=== PATIENT | male | born 1985 | race African-American/Black ===

== ENCOUNTER 2017-03-09 22:22 | Emergency (ER) | payer MEDICAID ==
[~2017-03-09] VITALS: Ht 185.4 cm; Wt 87.0 kg
[2017-03-09 22:25] VITALS: BP 129/73; PULSE 51; RESP 14; TEMP 98.4; O2SAT 98
[2017-03-09 23:29] VITALS: BP 155/74; PULSE 66; RESP 22; TEMP 98.3; O2SAT 100
[2017-03-09] MEDS ORDERED: ZOFR4TAB PO (23:32)
[2017-03-09] MEDS ORDERED: REGL5TAB PO (23:32)
[2017-03-09] MEDS ORDERED: PRIL10PO (23:32)
[2017-03-09] MEDS ORDERED: SODIUM CHLOR 0.9% 1000 ML INJ 1,000 ML IV SCH (23:37)
[2017-03-09] MEDS ORDERED: SODIUM CHLORIDE 0.9% FLUSH 10 ML FLUSH IV FLUSH PRN (23:45)
[2017-03-09] MEDS ORDERED: PROCHLORPERAZINE INJ 10 MG/2 ML VIAL IV PUSH ONE (23:45)
[2017-03-09] MEDS ORDERED: diphenhydrAMINE HCL 50 MG/ML VIAL IV PUSH ONE (23:45)
[2017-03-09] MEDS ORDERED: MORPHINE SULFATE 4 MG/ML INJ IV PUSH ONE (23:45)
[2017-03-09] MEDS ORDERED: ONDANSETRON HCL 4 MG/2 ML VIAL IVP ONE (23:45)
--- NOTE | 2017-03-09 23:45 | PD ---
HPI Chief Complaint: abdominal pain Time Seen by Provider: 23:30 Travel History International Travel<30 days: No Contact w/Intl Traveler<30days: No Traveled to known affect area: No History of Present Illness HPI The patient is a 31-year-old [place] male who presents emergency department via EMS for nausea, vomiting, and abdominal pain. The patient's name is Blas Nguyen, he was inadvertently listed as Blas Han, however, registration states he cannot change his name. The patient states he has a history of gastroparesis with persistent nausea, vomiting, and epigastric abdominal pain. The patient's symptoms started at 1 PM earlier today. The pain is moderate, nonradiating, burning, associated with nausea and vomiting. The patient states she is undergone endoscopy in the past and had his gallbladder removed, however, continues to have symptoms. He does admit smoking marijuana daily, takes approximately 2 showers per day which do alleviate his symptoms. He denies any previous diagnosis of hyperemesis cannabis syndrome, states she was diagnosed with gastroparesis. He denies any fever, chills, or sweats. Symptoms are moderate, there are no current alleviating or exacerbating factors. [facility] Past Medical History Narrative Medical Gastroparesis Past Surgical History Narrative Surgical Cholecystectomy, endoscopy Social History Tobacco Use: Yes Substance Use: Yes (marijuana) Allergies-Medications (Allergen,Severity, Reaction): Coded Allergies: No Known Allergies (Unverified , 03/09/17) Reported Meds & Prescriptions Reported Meds & Active Scripts Active Reported Prilosec (Omeprazole Magnesium) 10 Mg Pow Reglan (Metoclopramide HCl) 5 Mg Tab 5 Mg PO QID Zofran (Ondansetron HCl) 4 Mg Tab 4 Mg PO Q6HR PRN Review of Systems Except as stated in HPI: all other systems reviewed are Neg General / Constitutional: No: Fever HENT: No: Lightheadedness Cardiovascular: No: Chest Pain or Discomfort Respiratory: No: Shortness of Breath Gastrointestinal: Positive: Nausea, Vomiting, Abdominal Pain, No: Diarrhea, Constipation Genitourinary: No: Dysuria Musculoskeletal: No: Myalgias, Arthralgias Skin: No Rash Physical Exam Narrative GENERAL: Awake, alert, 31-year-old male who appears his stated age is in no acute respiratory distress. SKIN: Focused skin assessment warm/dry. HEAD: Atraumatic. Normocephalic. EYES: Pupils equal and round. No scleral icterus. No injection or drainage. ENT: No nasal bleeding or discharge. Mucous membranes pink and moist. NECK: Trachea midline. No JVD. CARDIOVASCULAR: Regular rate and rhythm. No murmur appreciated. Heart rate in the 60s. RESPIRATORY: No accessory muscle use. Clear to auscultation. Breath sounds equal bilaterally. GASTROINTESTINAL: Abdomen soft, mild epigastric tenderness, no rebound tenderness, guarding, or rigidity. MUSCULOSKELETAL: No obvious deformities. No clubbing. No cyanosis. No edema. NEUROLOGICAL: Awake and alert. No obvious cranial nerve deficits. Motor grossly within normal limits. Normal speech. PSYCHIATRIC: Appropriate mood and affect; insight and judgment normal. Data Data Last Documented VS Vital Signs Date Time Temp Pulse Resp B/P Pulse Ox O2 Delivery O2 Flow Rate FiO2 03/10/17 02:05 65 20 142/80 98 Room Air 03/09/17 23:29 98.3 Orders Complete Blood Count With Diff (03/09/17 23:37) Comprehensive Metabolic Panel (03/09/17 23:37) Lipase (03/09/17 23:37) Lactic Acid (03/09/17 23:37) Iv Access Insert/Monitor (03/09/17 23:37) Ecg Monitoring (03/09/17 23:37) Oximetry (03/09/17 23:37) Morphine Inj (Morphine Inj) (03/09/17 23:45) Ondansetron Inj (Zofran Inj) (03/09/17 23:45) Sodium Chlor 0.9% 1000 Ml Inj (Ns 1000 M (03/09/17 23:37) Sodium Chloride 0.9% Flush (Ns Flush) (03/09/17 23:45) Prochlorperazine Inj (Compazine Inj) (03/09/17 23:45) Diphenhydramine Inj (Benadryl Inj) (03/09/17 23:45) Ct Abd/Pel W Iv Contrast(Rout) (03/10/17 ) Sodium Chlor 0.9% 1000 Ml Inj (Ns 1000 M (03/10/17 01:30) Iohexol 350 Inj (Omnipaque 350 Inj) (03/10/17 02:05) Sodium Chlor 0.9% 1000 Ml Inj (Ns 1000 M (03/10/17 03:00) Lactic Acid (03/10/17 04:00) Complete Blood Count With Diff (03/10/17 04:00) Labs Laboratory Tests Test 03/09/17 03/10/17 23:55 04:13 White Blood Count 38.6 TH/MM3 28.5 TH/MM3 Red Blood Count 6.08 MIL/MM3 5.41 MIL/MM3 Hemoglobin 18.5 GM/DL 16.7 GM/DL Hematocrit 54.0 % 47.5 % Mean Corpuscular Volume 88.8 FL 87.7 FL Mean Corpuscular Hemoglobin 30.5 PG 30.9 PG Mean Corpuscular Hemoglobin 34.3 % 35.2 % Concent Red Cell Distribution Width 13.6 % 13.5 % Platelet Count 275 TH/MM3 202 TH/MM3 Mean Platelet Volume 9.5 FL 9.6 FL Neutrophils (%) (Auto) 87.3 % 90.9 % Lymphocytes (%) (Auto) 4.9 % 4.0 % Monocytes (%) (Auto) 7.4 % 4.5 % Eosinophils (%) (Auto) 0.0 % 0.0 % Basophils (%) (Auto) 0.4 % 0.6 % Neutrophils # (Auto) 33.7 TH/MM3 25.9 TH/MM3 Lymphocytes # (Auto) 1.9 TH/MM3 1.1 TH/MM3 Monocytes # (Auto) 2.8 TH/MM3 1.3 TH/MM3 Eosinophils # (Auto) 0.0 TH/MM3 0.0 TH/MM3 Basophils # (Auto) 0.1 TH/MM3 0.2 TH/MM3 CBC Comment AUTO DIFF DIFF FINAL Differential Total Cells 100 Counted Neutrophils % (Manual) 88 % Band Neutrophils % 1 % Lymphocytes % 5 % Monocytes % 6 % Neutrophils # (Manual) 34.4 TH/MM3 Differential Comment FINAL DIFF MANUAL Atypical Lymphocytes % Platelet Estimate NORMAL Platelet Morphology Comment NORMAL Sodium Level 132 MEQ/L Potassium Level 4.0 MEQ/L Chloride Level 97 MEQ/L Carbon Dioxide Level 22.3 MEQ/L Anion Gap 13 MEQ/L Blood Urea Nitrogen 28 MG/DL Creatinine 1.57 MG/DL Estimat Glomerular Filtration 63 ML/MIN Rate Random Glucose 178 MG/DL Lactic Acid Level 3.1 mmol/L 1.2 mmol/L Calcium Level 9.9 MG/DL Total Bilirubin 1.1 MG/DL Aspartate Amino Transf 27 U/L (AST/SGOT) Alanine Aminotransferase 27 U/L (ALT/SGPT) Alkaline Phosphatase 100 U/L Total Protein 9.0 GM/DL Albumin 4.9 GM/DL Lipase 83 U/L MDM Medical Decision Making Medical Screen Exam Complete: Yes Emergency Medical Condition: Yes Medical Record Reviewed: Yes Interpretation(s) Last Impressions Abdomen/Pelvis CT 03/10/17 0000 Signed Impressions: Service Date/Time: Friday, March 10, 2017 01:52 - CONCLUSION: 1. No acute inflammatory process. 2. Small left renal cyst. 3. Status post cholecystectomy. Noel Perea MD Laboratory Tests Test 03/09/17 03/10/17 23:55 04:13 White Blood Count 38.6 TH/MM3 28.5 TH/MM3 Red Blood Count 6.08 MIL/MM3 5.41 MIL/MM3 Hemoglobin 18.5 GM/DL 16.7 GM/DL Hematocrit 54.0 % 47.5 % Mean Corpuscular Volume 88.8 FL 87.7 FL Mean Corpuscular Hemoglobin 30.5 PG 30.9 PG Mean Corpuscular Hemoglobin 34.3 % 35.2 % Concent Red Cell Distribution Width 13.6 % 13.5 % Platelet Count 275 TH/MM3 202 TH/MM3 Mean Platelet Volume 9.5 FL 9.6 FL Neutrophils (%) (Auto) 87.3 % 90.9 % Lymphocytes (%) (Auto) 4.9 % 4.0 % Monocytes (%) (Auto) 7.4 % 4.5 % Eosinophils (%) (Auto) 0.0 % 0.0 % Basophils (%) (Auto) 0.4 % 0.6 % Neutrophils # (Auto) 33.7 TH/MM3 25.9 TH/MM3 Lymphocytes # (Auto) 1.9 TH/MM3 1.1 TH/MM3 Monocytes # (Auto) 2.8 TH/MM3 1.3 TH/MM3 Eosinophils # (Auto) 0.0 TH/MM3 0.0 TH/MM3 Basophils # (Auto) 0.1 TH/MM3 0.2 TH/MM3 CBC Comment AUTO DIFF DIFF FINAL Differential Total Cells 100 Counted Neutrophils % (Manual) 88 % Band Neutrophils % 1 % Lymphocytes % 5 % Monocytes % 6 % Neutrophils # (Manual) 34.4 TH/MM3 Differential Comment FINAL DIFF MANUAL Atypical Lymphocytes % Platelet Estimate NORMAL Platelet Morphology Comment NORMAL Sodium Level 132 MEQ/L Potassium Level 4.0 MEQ/L Chloride Level 97 MEQ/L Carbon Dioxide Level 22.3 MEQ/L Anion Gap 13 MEQ/L Blood Urea Nitrogen 28 MG/DL Creatinine 1.57 MG/DL Estimat Glomerular Filtration 63 ML/MIN Rate Random Glucose 178 MG/DL Lactic Acid Level 3.1 mmol/L 1.2 mmol/L Calcium Level 9.9 MG/DL Total Bilirubin 1.1 MG/DL Aspartate Amino Transf 27 U/L (AST/SGOT) Alanine Aminotransferase 27 U/L (ALT/SGPT) Alkaline Phosphatase 100 U/L Total Protein 9.0 GM/DL Albumin 4.9 GM/DL Lipase 83 U/L Differential Diagnosis Differential diagnosis includes gastroparesis, gastritis, peptic ulcer disease, retained biliary stone, pancreatitis, hyperemesis cannabis syndrome, malingering , drug-seeking behavior, electrolyte abnormality, dehydration. Narrative Course IV was established, labs are drawn and sent, and the patient was placed on cardiac telemetry monitoring and continuous pulse oximetry monitoring. The patient was administered Compazine, Benadryl, morphine, and IV fluids. The patient's white count was elevated at 38.6, hemoglobin was elevated greater than 18, most likely secondary to dehydration and hemoconcentration from his persistent nausea and vomiting. However, with elevated white count and ongoing symptoms, CT of the abdomen and pelvis was ordered. The patient was administered a second liter of IV fluids. The patient's lactic acid and white count were repeated after IV fluids, significantly improved. CT of the abdomen and pelvis were negative. The patient was reevaluated multiple times and was sleeping comfortably, most likely lactic acid and white count were elevated from persistent nausea/vomiting with dehydration. Patient will be discharged home on Reglan and pain medications. He is advised to follow-up with his primary physician. Diagnosis Primary Impression: Gastroparesis Additional Impression: Dehydration Patient Instructions: General Instructions Additional Instructions: Medications as directed. Follow-up with your primary physician. Return if symptoms worsen or progress. Med/Other Pt SpecificInfo: Prescription(s) given Scripts Hydrocodone-Acetaminophen ([place])5-325 mg Tab1 Tab PO Q6H PRN (PAIN) #10 TAB Ref 0 Prov:Sukumar Ambriz MD 03/10/17 Metoclopramide (Reglan)10 Mg Tab10 Mg PO QID PRN (NAUSEA OR VOMITING) #15 TAB Ref 0 Prov:Sukumar Ambriz MD 03/10/17 Disposition: 01 DISCHARGE HOME Condition: Stable Sukumar Ambriz MD Mar 09, 2017 23:45
[2017-03-10 00:10] LABS: AUTOMATED NEUTROPHIL # 33.7 TH/MM3 (1.8-7.7); BASOPHIL # 0.1 TH/MM3 (0-0.2); BASOPHIL % 0.4 % (0.0-2.0); LYMPH % 4.9 % (9.0-44.0); LYMPHOCYTE # 1.9 TH/MM3 (1.0-4.8); MEAN CELL VOLUME 88.8 FL (80.0-100.0); MEAN CORPUSCULAR HEMOGLOBIN 30.5 PG (27.0-34.0); MEAN CORPUSCULAR HGB CONC 34.3 % (32.0-36.0); MONO % 7.4 % (0.0-8.0); NEUT % 87.3 % (16.0-70.0); PLATELET COUNT 275 TH/MM3 (150-450); RED BLOOD COUNT 6.08 MIL/MM3 (4.50-5.90); RED CELL DISTRIBUTION WIDTH 13.6 % (11.6-17.2); WHITE BLOOD COUNT 38.6 TH/MM3 (4.0-11.0)
[2017-03-10 00:15] LABS: HEMO FLAGS AUTO DIFF
[2017-03-10 00:27] LABS: ALKALINE PHOSPHATASE 100 U/L (45-117); TOTAL BILIRUBIN ADULT 1.1 MG/DL (0.2-1.0)
[2017-03-10 00:34] LABS: ALT (GPT) 27 U/L (12-78); ANION GAP 13 MEQ/L (5-15); AST (GOT) 27 U/L (15-37); BICARBONATE 22.3 MEQ/L (21.0-32.0); BLOOD UREA NITROGEN 28 MG/DL (7-18); CHLORIDE 97 MEQ/L (98-107); GLOMERULAR FILTRATION RATE 63 ML/MIN (>89); SODIUM (NA) 132 MEQ/L (136-145)
[2017-03-10 00:35] VITALS: BP 122/62; PULSE 75; RESP 19; O2SAT 99
[2017-03-10] MEDS ORDERED: SODIUM CHLOR 0.9% 1000 ML INJ 1,000 ML IV ONE ×2 (01:30→03:00)
[2017-03-10 01:36] LABS: BANDS 1 % (0-6); NEUTROPHIL # MANUAL DIFF 34.4 TH/MM3 (1.8-7.7); POLYS (SEG NEUTROPHILS) 88 % (16-70); WBC DIFF SAMPLE 100
[2017-03-10 01:37] LABS: SCAN/DIFF FINAL DIFF MANUAL
[2017-03-10 01:38] LABS: PLATELET ESTIMATE SMEAR NORMAL (NORMAL); PLATELET MORPHOLOGY NORMAL (NORMAL)
[2017-03-10 02:05] VITALS: BP 142/80; PULSE 65; RESP 20; O2SAT 98
[2017-03-10] MEDS ORDERED: IOHEXOL 350 MG/ML 10 ML VIAL (for RAD DIAG) IV ONE (02:05)
--- NOTE | 2017-03-10 02:34 | RADRPT ---
EXAM DATE/TIME: 03/10/2017 01:52 [facility] COMPARISON: No previous studies available for comparison. INDICATIONS : Abdominal pain with vomiting. IV CONTRAST: 100 cc Omnipaque 350 (iohexol) IV ORAL CONTRAST: No oral contrast ingested. RADIATION DOSE: 6.64 CTDIvol (mGy) MEDICAL HISTORY : Gastroparesis. SURGICAL HISTORY : Cholecystectomy. ENCOUNTER: Initial ACUITY: 1 day PAIN SCALE: 8/10 LOCATION: abdomen TECHNIQUE: Volumetric scanning of the abdomen and pelvis was performed. Using automated exposure control and ad justment of the mA and/or kV according to patient size, radiation dose was kept as low as reasonably achievable to obtain optimal diagnostic quality images. DICOM format image data is available electro nically for review and comparison. FINDINGS: LOWER LUNGS: The visualized lower lungs are clear. LIVER: Homogeneous density without lesion. There is no dilation of the biliary tree. Cholecystectomy clips. SPLEEN: Normal size without lesion. PANCREAS: Within normal limits. KIDNEYS: Normal in size and shape. There is no mass, stone or hydronephrosis. A 1.1 cm left renal cyst. ADRENAL GLANDS: Within normal limits. VASCULAR: There is no aortic aneurysm. BOWEL/MESENTERY: The stomach, small bowel, and colon demonstrate no acute abnormality. There is no free intraperitone al air or fluid. ABDOMINAL WALL: Within normal limits. RETROPERITONEUM: There is no lymphadenopathy. BLADDER: No wall thickening or mass. REPRODUCTIVE: Within normal limits. INGUINAL: There is no lymphadenopathy or hernia. MUSCULOSKELETAL: Within normal limits for patient age. CONCLUSION: 1. No acute inflammatory process. 2. Small left renal cyst. 3. Status post cholecystectomy. Noel Perea MD on March 10, 2017 at 2:30 Board Certified Radiologist. This report was verified electronically.
[2017-03-10 04:26] LABS: AUTOMATED NEUTROPHIL # 25.9 TH/MM3 (1.8-7.7); BASOPHIL # 0.2 TH/MM3 (0-0.2); BASOPHIL % 0.6 % (0.0-2.0); HEMATOCRIT 47.5 % (39.0-51.0); HEMO FLAGS DIFF FINAL; LYMPHOCYTE # 1.1 TH/MM3 (1.0-4.8); MEAN CELL VOLUME 87.7 FL (80.0-100.0); MEAN CORPUSCULAR HEMOGLOBIN 30.9 PG (27.0-34.0); MEAN CORPUSCULAR HGB CONC 35.2 % (32.0-36.0); MONO % 4.5 % (0.0-8.0); NEUT % 90.9 % (16.0-70.0); PLATELET COUNT 202 TH/MM3 (150-450); RED BLOOD COUNT 5.41 MIL/MM3 (4.50-5.90); RED CELL DISTRIBUTION WIDTH 13.5 % (11.6-17.2); WHITE BLOOD COUNT 28.5 TH/MM3 (4.0-11.0)
[2017-03-10] MEDS ORDERED: REGL10TA5 PO (05:00)
[2017-03-10] MEDS ORDERED: NORC5TAB PO (05:00)
[2017-03-10 06:06] VITALS: BP 120/71
[2017-03-10] MEDS ORDERED: MORPHINE SULFATE 4 MG/ML INJ IM ONE (06:30)
[2017-03-10] MEDS ORDERED: PROCHLORPERAZINE INJ 10 MG/2 ML VIAL IM ONE (06:30)
== END 2017-03-10 06:48 | disposition home or self-care (01) ==
LOC: NEPE 22:22 → EDBD 22:22 → NEPE 03-10 06:48
DX: K31.84 Gastroparesis (principal); E86.0 Dehydration; F12.90 Cannabis use, unspecified, uncomplicated; Z72.0 Tobacco use
CPT/HCPCS: 74177; 80053; 83605; 83690; 85007; 85025; 85027; 96361; 96372; 96374; 96375; 99285; J0780; J1200; J2270; J2405; J7030; Q9967

== ENCOUNTER 2017-04-07 04:06 | Emergency (ER) | payer MEDICAID ==
[~2017-04-07] VITALS: Ht 185.4 cm; Wt 88.0 kg
[~2017-04-07 04:06] MED LIST: NORC5TAB PO; PRIL10PO; REGL10TA5 PO; REGL5TAB PO; ZOFR4TAB PO
[2017-04-07 04:47] VITALS: BP 149/86; PULSE 52; RESP 16; TEMP 98.2; O2SAT 99
[2017-04-07] MEDS ORDERED: SODIUM CHLOR 0.9% 1000 ML INJ 1,000 ML IV SCH (04:57)
[2017-04-07] MEDS ORDERED: SODIUM CHLORIDE 0.9% FLUSH 10 ML FLUSH IV FLUSH PRN (05:00)
[2017-04-07] MEDS ORDERED: ALUMINUM/MAGNESIUM/SIMETH 30 ML CUP PO ONE (05:00)
[2017-04-07] MEDS ORDERED: PANTOPRAZOLE SODIUM 40 MG VIAL IVP ONE (05:00)
[2017-04-07] MEDS ORDERED: LIDOCAINE VISCOUS 2% SOLN 15 ML UDC PO ONE (05:00)
--- NOTE | 2017-04-07 05:05 | PD ---
HPI Chief Complaint: GI Complaint Time Seen by Provider: 04:57 Travel History International Travel<30 days: No Contact w/Intl Traveler<30days: No Traveled to known affect area: No History of Present Illness HPI The patient's 31 years old. He states he's had gastritis for 10 years. He reports severe constant epigastric pain. No vomiting. No fever. No diarrhea. He requests ice water. Onset gradual. Duration of this particular episode has been several hours. He reports undergoing treatment at [facility]. [facility] Past Medical History Diminished Hearing: No Gastrointestinal Disorders: Yes (GASTROPARESIS) Past Surgical History Cholecystectomy: Yes Social History Alcohol Use: Yes (RARE) Tobacco Use: Yes (1 PPD) Substance Use: Yes (marijuana) Allergies-Medications (Allergen,Severity, Reaction): Coded Allergies: No Known Allergies (Unverified , 04/07/17) Reported Meds & Prescriptions Reported Meds & Active Scripts Active Reglan (Metoclopramide HCl) 10 Mg Tab 10 Mg PO QID PRN Reported Prilosec (Omeprazole Magnesium) 10 Mg Pow Reglan (Metoclopramide HCl) 5 Mg Tab 5 Mg PO QID Zofran (Ondansetron HCl) 4 Mg Tab 4 Mg PO Q6HR PRN Review of Systems Except as stated in HPI: all other systems reviewed are Neg Physical Exam Narrative GENERAL: 31-year-old male mild distress secondary to pain SKIN: Focused skin assessment warm/dry. HEAD: Atraumatic. Normocephalic. EYES: Pupils equal and round. No scleral icterus. No injection or drainage. ENT: No nasal bleeding or discharge. Mucous membranes pink and moist. NECK: Trachea midline. No JVD. CARDIOVASCULAR: Regular rate and rhythm. No murmur appreciated. RESPIRATORY: No accessory muscle use. Clear to auscultation. Breath sounds equal bilaterally. GASTROINTESTINAL: Soft. Diffuse nonspecific tenderness. MUSCULOSKELETAL: No obvious deformities. No clubbing. No cyanosis. No edema. NEUROLOGICAL: Awake and alert. No obvious cranial nerve deficits. Motor grossly within normal limits. Normal speech. PSYCHIATRIC: Appropriate mood and affect; insight and judgment normal. Data Data Last Documented VS Vital Signs Date Time Temp Pulse Resp B/P Pulse Ox O2 Delivery O2 Flow Rate FiO2 04/07/17 04:47 98.2 52 16 149/86 99 Room Air VS reviewed Orders Complete Blood Count With Diff (04/07/17 04:57) Comprehensive Metabolic Panel (04/07/17 04:57) Lipase (04/07/17 04:57) Lactic Acid (04/07/17 04:57) Iv Access Insert/Monitor (04/07/17 04:57) Ecg Monitoring (04/07/17 04:57) Oximetry (04/07/17 04:57) Pantoprazole Inj (Protonix Inj) (04/07/17 05:00) Sodium Chlor 0.9% 1000 Ml Inj (Ns 1000 M (04/07/17 04:57) Sodium Chloride 0.9% Flush (Ns Flush) (04/07/17 05:00) Al-Mag Hy-Si 40-40-4 Mg/Ml Liq (Mag-Al P (04/07/17 05:00) Lidocaine 2% Viscous (Xylocaine 2% Visco (04/07/17 05:00) Labs Laboratory Tests Test 04/07/17 05:05 White Blood Count 28.4 TH/MM3 Red Blood Count 5.37 MIL/MM3 Hemoglobin 16.5 GM/DL Hematocrit 48.1 % Mean Corpuscular Volume 89.6 FL Mean Corpuscular Hemoglobin 30.6 PG Mean Corpuscular Hemoglobin 34.2 % Concent Red Cell Distribution Width 13.6 % Platelet Count 249 TH/MM3 Mean Platelet Volume 9.0 FL Neutrophils (%) (Auto) 80.6 % Lymphocytes (%) (Auto) 10.1 % Monocytes (%) (Auto) 8.5 % Eosinophils (%) (Auto) 0.1 % Basophils (%) (Auto) 0.7 % Neutrophils # (Auto) 22.8 TH/MM3 Lymphocytes # (Auto) 2.9 TH/MM3 Monocytes # (Auto) 2.4 TH/MM3 Eosinophils # (Auto) 0.0 TH/MM3 Basophils # (Auto) 0.2 TH/MM3 CBC Comment AUTO DIFF Sodium Level 139 MEQ/L Potassium Level 3.7 MEQ/L Chloride Level 102 MEQ/L Carbon Dioxide Level 27.0 MEQ/L Anion Gap 10 MEQ/L Blood Urea Nitrogen 10 MG/DL Creatinine 1.01 MG/DL Estimat Glomerular Filtration 105 ML/MIN Rate Random Glucose 109 MG/DL Lactic Acid Level 1.7 mmol/L Calcium Level 9.3 MG/DL Total Bilirubin 0.4 MG/DL Aspartate Amino Transf 30 U/L (AST/SGOT) Alanine Aminotransferase 40 U/L (ALT/SGPT) Alkaline Phosphatase 87 U/L Total Protein 7.5 GM/DL Albumin 3.9 GM/DL Lipase 237 U/L MDM Medical Decision Making Medical Screen Exam Complete: Yes Emergency Medical Condition: Yes Medical Record Reviewed: Yes Differential Diagnosis Constipation, Gastritis, Acute Cholecystitis, Biliary Colic, Pancreatitis, FINE , Hepatitis, Bowel Obstruction, Cystitis, Mesenteric Ischemia, AAA, Appendicitis , Renal Stone/Hydronephrosis, GERD, perforated viscous Narrative Course CBC & BMP Diagram 04/07/17 05:05 LFTs normal Lipase normal LA 1.7 She has rested here comfortably. He was seen and evaluated here at similar complaint approximately one month ago. He had a marked leukocytosis then as well. Vital signs have been within acceptable range today. He'll be discharged home with Maalox. Follow-up with gastroenterology. Diagnosis Primary Impression: Gastritis Qualified Code: K29.70 - Gastritis without bleeding, unspecified chronicity, unspecified gastritis type Referrals: Chess Instructor 2 days Additional Instructions: You have a choice when it comes to health care, and we are glad that you chose [facility]. Hopefully, we have met your expectations on today's visit. You are welcome to return to [facility] at any time, as we are committed to meeting the health care needs of our community. Med/Other Pt SpecificInfo: Prescription(s) given Scripts Calcium Carbonate-Simethicone (Maalox Advanced Maximum Strength)1,000-60 Mg Chew1-2 Tab CHEW TID PRN (INDIGESTION OR UPSET STOMACH) 3 Days Ref 0 Prov:Keith Coleman MD 04/07/17 Disposition: 01 DISCHARGE HOME Condition: Stable Keith Coleman MD Apr 07, 2017 05:05
[2017-04-07 05:25] LABS: AUTOMATED NEUTROPHIL # 22.8 TH/MM3 (1.8-7.7); BASOPHIL # 0.2 TH/MM3 (0-0.2); BASOPHIL % 0.7 % (0.0-2.0); EOSINOPHIL % 0.1 % (0.0-4.0); HEMATOCRIT 48.1 % (39.0-51.0); LYMPH % 10.1 % (9.0-44.0); LYMPHOCYTE # 2.9 TH/MM3 (1.0-4.8); MEAN CELL VOLUME 89.6 FL (80.0-100.0); MEAN CORPUSCULAR HEMOGLOBIN 30.6 PG (27.0-34.0); MEAN CORPUSCULAR HGB CONC 34.2 % (32.0-36.0); MONO % 8.5 % (0.0-8.0); NEUT % 80.6 % (16.0-70.0); PLATELET COUNT 249 TH/MM3 (150-450); RED BLOOD COUNT 5.37 MIL/MM3 (4.50-5.90); RED CELL DISTRIBUTION WIDTH 13.6 % (11.6-17.2); WHITE BLOOD COUNT 28.4 TH/MM3 (4.0-11.0)
[2017-04-07 05:34] LABS: HEMO FLAGS AUTO DIFF
[2017-04-07 05:41] LABS: ALT (GPT) 40 U/L (12-78); ANION GAP 10 MEQ/L (5-15); AST (GOT) 30 U/L (15-37); BLOOD UREA NITROGEN 10 MG/DL (7-18); CHLORIDE 102 MEQ/L (98-107); GLOMERULAR FILTRATION RATE 105 ML/MIN (>89); POTASSIUM 3.7 MEQ/L (3.5-5.1); SODIUM (NA) 139 MEQ/L (136-145)
[2017-04-07 05:43] LABS: ALKALINE PHOSPHATASE 87 U/L (45-117); TOTAL BILIRUBIN ADULT 0.4 MG/DL (0.2-1.0)
[2017-04-07] MEDS ORDERED: MAAL10003 CHEW (05:55)
[2017-04-07] MEDS ORDERED: OMEP20TA PO (06:03)
[2017-04-07 06:23] VITALS: BP 151/71
[2017-04-07 07:19] LABS: SCAN/DIFF AUTO DIFF CONFIRMED
== END 2017-04-07 06:24 | disposition home or self-care (01) ==
LOC: NEPE 04:06
DX: K29.70 Gastritis, unspecified, without bleeding (principal)
CPT/HCPCS: 80053; 83605; 83690; 85025; 96374; 99284; C9113; J7030

== ENCOUNTER 2017-05-04 19:52 | Inpatient (IN) | payer MEDICAID ==
[~2017-05-04] VITALS: Ht 185.4 cm; Wt 83.6 kg
[~2017-05-04 19:52] MED LIST changes: +MAAL10003 CHEW; -NORC5TAB PO; +OMEP20TA PO
[2017-05-04 19:54] VITALS: BP 137/91; PULSE 86; RESP 20; TEMP 98; O2SAT 98
--- NOTE | 2017-05-04 20:14 | PD ---
Physical Exam Time Seen by Provider: 20:13 Narrative 31 y/o male here for evaluation of abdominal pain, nausea, vomiting. Hx of gastroparesis. Ran out of zofran and prilosec 2 weeks ago. Vital signs reviewed. Seen at triage desk. Awaiting bed placement. Data Data Last Documented VS Vital Signs Date Time Temp Pulse Resp B/P Pulse Ox O2 Delivery O2 Flow Rate FiO2 05/04/17 19:54 98.0 86 20 137/91 98 MDM Medical Record Reviewed: Yes Supervised Visit with JESSICA: Rajiv Fink May 04, 2017 20:14
[2017-05-04 20:40] LABS: BASOPHIL # 0.3 TH/MM3 (0-0.2); BASOPHIL % 0.9 % (0.0-2.0); EOSINOPHIL # 0.2 TH/MM3 (0-0.4); EOSINOPHIL % 0.7 % (0.0-4.0); HEMATOCRIT 50.6 % (39.0-51.0); HEMO FLAGS DIFF FINAL; LYMPHOCYTE # 4.7 TH/MM3 (1.0-4.8); MEAN CELL VOLUME 89.4 FL (80.0-100.0); MEAN CORPUSCULAR HEMOGLOBIN 31.1 PG (27.0-34.0); MEAN CORPUSCULAR HGB CONC 34.8 % (32.0-36.0); MONO % 4.9 % (0.0-8.0); NEUT % 76.5 % (16.0-70.0); PLATELET COUNT 316 TH/MM3 (150-450); RED BLOOD COUNT 5.66 MIL/MM3 (4.50-5.90); WHITE BLOOD COUNT 27.5 TH/MM3 (4.0-11.0)
[2017-05-04 21:07] LABS: ANION GAP 10 MEQ/L (5-15); AST (GOT) 20 U/L (15-37); BICARBONATE 23.2 MEQ/L (21.0-32.0); BLOOD UREA NITROGEN 21 MG/DL (7-18); CHLORIDE 100 MEQ/L (98-107); GLOMERULAR FILTRATION RATE 81 ML/MIN (>89); POTASSIUM 3.2 MEQ/L (3.5-5.1); SODIUM (NA) 133 MEQ/L (136-145)
[2017-05-04 21:08] LABS: ALT (GPT) 21 U/L (12-78)
[2017-05-04 21:10] LABS: ALKALINE PHOSPHATASE 103 U/L (45-117); TOTAL BILIRUBIN ADULT 0.9 MG/DL (0.2-1.0)
[2017-05-04 21:43] VITALS: BP 152/94; PULSE 73; RESP 18; O2SAT 96
--- NOTE | 2017-05-04 22:03 | PD ---
HPI Chief Complaint: GI Complaint Time Seen by Provider: 22:03 Travel History International Travel<30 days: No Contact w/Intl Traveler<30days: No Traveled to known affect area: No History of Present Illness HPI 31-year-old male with long-standing history of gastroparesis presents to the emergency department today for evaluation of severe epigastric pain, nausea, vomiting. Patient states he's been out of his medication for 2 weeks. He states since his last hospitalization, he did not seek follow-up with primary care provider or gastroenterology, saying that he did not know he was supposed to. Patient denies any fever or chills. No chest tightness. States pain is typical of gastroparesis pain. He has no other symptoms to report. [facility] Past Medical History Diminished Hearing: No Gastrointestinal Disorders: Yes (GASTROPARESIS) Past Surgical History Cholecystectomy: Yes Social History Alcohol Use: Yes (RARE) Tobacco Use: Yes (1 PPD) Substance Use: Yes (marijuana) Allergies-Medications (Allergen,Severity, Reaction): Coded Allergies: No Known Allergies (Unverified , 05/04/17) Reported Meds & Prescriptions Reported Meds & Active Scripts Active Reglan (Metoclopramide HCl) 10 Mg Tab 10 Mg PO QID PRN Maalox Advanced Maximum Strength (Calcium Carbonate-Simethicone) 1,000-60 Mg Chew 1-2 Tab CHEW TID PRN Omeprazole 20 Mg Tab 20 Mg PO DAILY Review of Systems Except as stated in HPI: all other systems reviewed are Neg Physical Exam Narrative GENERAL: Well-nourished male patient, curled up in a position on the stretcher but does not appear in acute distress. SKIN: Focused skin assessment warm/dry. HEAD: Atraumatic. Normocephalic. EYES: Pupils equal and round. No scleral icterus. No injection or drainage. ENT: No nasal bleeding or discharge. Mucous membranes pink and moist. NECK: Trachea midline. No JVD. CARDIOVASCULAR: Regular rate and rhythm. No murmur appreciated. RESPIRATORY: No accessory muscle use. Clear to auscultation. Breath sounds equal bilaterally. GASTROINTESTINAL: Abdomen soft, nondistended. Tenderness in the epigastrium. Hepatic and splenic margins not palpable. MUSCULOSKELETAL: No obvious deformities. No clubbing. No cyanosis. No edema. NEUROLOGICAL: Awake and alert. No obvious cranial nerve deficits. Motor grossly within normal limits. Normal speech. PSYCHIATRIC: Appropriate mood and affect; insight and judgment normal. Data Data Last Documented VS Vital Signs Date Time Temp Pulse Resp B/P Pulse Ox O2 Delivery O2 Flow Rate FiO2 05/04/17 21:43 73 18 152/94 96 Room Air 05/04/17 19:54 98.0 Orders Complete Blood Count With Diff (05/04/17 20:14) Comprehensive Metabolic Panel (05/04/17 20:14) Lipase (05/04/17 20:14) Urinalysis - C+S If Indicated (05/04/17 20:14) Iv Access Insert/Monitor (05/04/17 22:07) Ondansetron Inj (Zofran Inj) (05/04/17 22:15) Pantoprazole Inj (Protonix Inj) (05/04/17 22:15) Sodium Chlor 0.9% 1000 Ml Inj (Ns 1000 M (05/04/17 22:07) Al-Mag Hy-Si 40-40-4 Mg/Ml Liq (Mag-Al P (05/04/17 22:15) Lidocaine 2% Viscous (Xylocaine 2% Visco (05/04/17 22:15) Potassium Chloride (Kcl) (05/04/17 22:45) Metoclopramide Inj (Reglan Inj) (05/04/17 22:45) Diphenhydramine Inj (Benadryl Inj) (05/04/17 22:45) Labs Laboratory Tests Test 05/04/17 20:21 White Blood Count 27.5 TH/MM3 Red Blood Count 5.66 MIL/MM3 Hemoglobin 17.6 GM/DL Hematocrit 50.6 % Mean Corpuscular Volume 89.4 FL Mean Corpuscular Hemoglobin 31.1 PG Mean Corpuscular Hemoglobin 34.8 % Concent Red Cell Distribution Width 13.0 % Platelet Count 316 TH/MM3 Mean Platelet Volume 8.9 FL Neutrophils (%) (Auto) 76.5 % Lymphocytes (%) (Auto) 17.0 % Monocytes (%) (Auto) 4.9 % Eosinophils (%) (Auto) 0.7 % Basophils (%) (Auto) 0.9 % Neutrophils # (Auto) 21.0 TH/MM3 Lymphocytes # (Auto) 4.7 TH/MM3 Monocytes # (Auto) 1.3 TH/MM3 Eosinophils # (Auto) 0.2 TH/MM3 Basophils # (Auto) 0.3 TH/MM3 CBC Comment DIFF FINAL Differential Comment Sodium Level 133 MEQ/L Potassium Level 3.2 MEQ/L Chloride Level 100 MEQ/L Carbon Dioxide Level 23.2 MEQ/L Anion Gap 10 MEQ/L Blood Urea Nitrogen 21 MG/DL Creatinine 1.27 MG/DL Estimat Glomerular Filtration 81 ML/MIN Rate Random Glucose 125 MG/DL Calcium Level 9.3 MG/DL Total Bilirubin 0.9 MG/DL Aspartate Amino Transf 20 U/L (AST/SGOT) Alanine Aminotransferase 21 U/L (ALT/SGPT) Alkaline Phosphatase 103 U/L Total Protein 8.5 GM/DL Albumin 4.7 GM/DL Lipase 109 U/L MDM Medical Decision Making Medical Screen Exam Complete: Yes Emergency Medical Condition: Yes Medical Record Reviewed: Yes Differential Diagnosis Gastroparesis versus gastritis versus gastroenteritis versus cholecystitis versus pancreatitis Narrative Course 31-year-old male presents to the emergency department for evaluation of abdominal pain, nausea, vomiting. This is typical of gastroparesis and gastritis and patient has been out of his medication for the last 2 weeks. Patient is given GI cocktail, Protonix, Zofran, IV fluids here in the emergency department. Patient is with leukocytosis of 27.5, which is consistent with patient's previous lab work. CMP is with mild hypokalemia 3.2, BUN 21, lipase 109.' 2300 patient signed out to my attending physician. Diagnosis Primary Impression: Intractable vomiting Qualified Code: R11.2 - Intractable vomiting with nausea, unspecified vomiting type Admitting Information Admitting Physician Requests: Observation Referrals: Wind Project Manager Primary Care Physician Patient Instructions: Gastroparesis (ED), General Instructions Additional Instructions: Follow-up with a primary care provider Seek gastroenterology evaluation Return immediately with any acute worsening of symptoms Med/Other Pt SpecificInfo: Prescription(s) given Scripts Metoclopramide (Reglan)10 Mg Tab10 Mg PO QID PRN (NAUSEA OR VOMITING) #15 TAB Ref 0 Prov:Shannan Avitia 05/04/17 Calcium Carbonate-Simethicone (Maalox Advanced Maximum Strength)1,000-60 Mg Chew1-2 Tab CHEW TID PRN (INDIGESTION OR UPSET STOMACH) #30 TAB Ref 0 Prov:Shannan Avitia 05/04/17 Omeprazole 20 Mg Tab20 Mg PO DAILY #30 TAB Ref 0 Prov:Shannan Avitia 05/04/17 Condition: Stable Shannan Avitia May 04, 2017 22:03
[2017-05-04] MEDS ORDERED: SODIUM CHLOR 0.9% 1000 ML INJ 1,000 ML IV SCH (22:07)
[2017-05-04] MEDS ORDERED: LIDOCAINE VISCOUS 2% SOLN 15 ML UDC PO ONE (22:15)
[2017-05-04] MEDS ORDERED: PANTOPRAZOLE SODIUM 40 MG VIAL IVP ONE (22:15)
[2017-05-04] MEDS ORDERED: ONDANSETRON HCL 4 MG/2 ML VIAL IVP ONE (22:15)
[2017-05-04] MEDS ORDERED: ALUMINUM/MAGNESIUM/SIMETH 30 ML CUP PO ONE (22:15)
[2017-05-04] MEDS ORDERED: MAAL10003 CHEW (22:16)
[2017-05-04] MEDS ORDERED: OMEP20TA PO (22:16)
[2017-05-04] MEDS ORDERED: REGL10TA5 PO (22:16)
[2017-05-04] MEDS ORDERED: diphenhydrAMINE HCL 50 MG/ML VIAL IV PUSH ONE (22:45)
[2017-05-04] MEDS ORDERED: METOCLOPRAMIDE HCL 10 MG/2 ML VIAL IV PUSH ONE (22:45)
[2017-05-04] MEDS ORDERED: POTASSIUM CHLORIDE 10 MEQ CONTROLLED RELEASE TAB PO ONE (22:45)
[2017-05-04 23:46] VITALS: BP 135/68; PULSE 61; RESP 18; O2SAT 100
[2017-05-04] MEDS ORDERED: MORPHINE SULFATE 8 MG/ML INJ ONE (23:58)
[2017-05-05] VITALS (9 sets, daily range): BP systolic 114–143; BP diastolic 63–94; PULSE 52–97; RESP 16–20; TEMP 96.7–98.8; O2SAT 94–98
--- NOTE | 2017-05-05 00:28 | PD ---
Physical Exam Date Seen by Provider: May 05, 2017 Time Seen by Provider: 00:26 Narrative 31-year-old male came in for intractable vomiting. Apparently he has history of gastroparesis. He was seen by my nurse practitioner who medicated him with antiemetics. Patient continued to retch and vomit. This is the third time in past 3 months he has come to the emergency room. Each time is for the same complaint. Eventually I decided to put a nasogastric tube and suction his stomach. Patient has put out 400-500 ML of yellowish gastric juice. He would need to be admitted for intractable vomiting. His blood work showed leukocytosis. However upon trending back he has had leukocytosis in the past which have been worse. He has had CT scan done in the past which did not show anything besides gastroparesis. Not ordered another CAT scan this time. Patient was admitted to the hospitalist who accepted the case. Data Data Last Documented VS Orders Orders Complete Blood Count With Diff (05/04/17 20:14) Comprehensive Metabolic Panel (05/04/17 20:14) Lipase (05/04/17 20:14) Iv Access Insert/Monitor (05/04/17 22:07) Ondansetron Inj (Zofran Inj) (05/04/17 22:15) Pantoprazole Inj (Protonix Inj) (05/04/17 22:15) Sodium Chlor 0.9% 1000 Ml Inj (Ns 1000 M (05/04/17 22:07) Al-Mag Hy-Si 40-40-4 Mg/Ml Liq (Mag-Al P (05/04/17 22:15) Lidocaine 2% Viscous (Xylocaine 2% Visco (05/04/17 22:15) Potassium Chloride (Kcl) (05/04/17 22:45) Metoclopramide Inj (Reglan Inj) (05/04/17 22:45) Diphenhydramine Inj (Benadryl Inj) (05/04/17 22:45) Insert Ng Tube (05/04/17 23:02) Morphine Inj (Morphine Inj) (05/04/17 23:58) Morphine Inj (Morphine Inj) (05/05/17 00:30) Chest, Single Ap (05/05/17 ) Admit Order (Ed Use Only) (05/05/17 00:25) Labs Laboratory Tests Test 05/04/17 20:21 White Blood Count 27.5 TH/MM3 Red Blood Count 5.66 MIL/MM3 Hemoglobin 17.6 GM/DL Hematocrit 50.6 % Mean Corpuscular Volume 89.4 FL Mean Corpuscular Hemoglobin 31.1 PG Mean Corpuscular Hemoglobin Concent 34.8 % Red Cell Distribution Width 13.0 % Platelet Count 316 TH/MM3 Mean Platelet Volume 8.9 FL Neutrophils (%) (Auto) 76.5 % Lymphocytes (%) (Auto) 17.0 % Monocytes (%) (Auto) 4.9 % Eosinophils (%) (Auto) 0.7 % Basophils (%) (Auto) 0.9 % Neutrophils # (Auto) 21.0 TH/MM3 Lymphocytes # (Auto) 4.7 TH/MM3 Monocytes # (Auto) 1.3 TH/MM3 Eosinophils # (Auto) 0.2 TH/MM3 Basophils # (Auto) 0.3 TH/MM3 CBC Comment DIFF FINAL Differential Comment Blood Urea Nitrogen 21 MG/DL Creatinine 1.27 MG/DL Random Glucose 125 MG/DL Total Protein 8.5 GM/DL Albumin 4.7 GM/DL Calcium Level 9.3 MG/DL Alkaline Phosphatase 103 U/L Aspartate Amino Transf (AST/SGOT) 20 U/L Alanine Aminotransferase (ALT/SGPT) 21 U/L Total Bilirubin 0.9 MG/DL Sodium Level 133 MEQ/L Potassium Level 3.2 MEQ/L Chloride Level 100 MEQ/L Carbon Dioxide Level 23.2 MEQ/L Anion Gap 10 MEQ/L Estimat Glomerular Filtration Rate 81 ML/MIN Lipase 109 U/L MDM Supervised Visit with JESSICA: No Diagnosis Primary Impression: Intractable vomiting Additional Impression: Gastroparesis Admitting Information Admitting Physician Requests: Observation Referrals: [employer] Primary Care Physician Patient Instructions: General Instructions, Gastroparesis (ED) Additional Instruction: Follow-up with a primary care provider Seek gastroenterology evaluation Return immediately with any acute worsening of symptoms Scripts Metoclopramide (Reglan) 10 Mg Tab 10 MG PO TIDAC for Gastroparesis for 30 Days, TAB 0 Refills Prov: Derik Vanceeduardotremayne 05/06/17 Condition: Stable Valencia Landa MD May 05, 2017 00:28
[2017-05-05] MEDS ORDERED: MORPHINE SULFATE 4 MG/ML INJ IV PUSH ONE (00:30)
[2017-05-05] MEDS ORDERED: BISACODYL 10 MG SUPP RECTAL PRN (00:45)
[2017-05-05] MEDS ORDERED: SENNOSIDES 8.6 MG TAB PO PRN (00:45)
[2017-05-05] MEDS ORDERED: LACTULOSE SYRUP 20 GM/30 ML CUP PO PRN (00:45)
[2017-05-05] MEDS ORDERED: MAGNESIUM HYDROXIDE SUSP 30 ML CUP PO PRN (00:45)
[2017-05-05] MEDS ORDERED: ACETAMINOPHEN 325 MG TAB PO PRN (00:45)
[2017-05-05] MEDS ORDERED: PROCHLORPERAZINE INJ 10 MG/2 ML VIAL IV PUSH PRN (00:45)
[2017-05-05] MEDS ORDERED: MORPHINE SULFATE 4 MG/ML INJ IV PRN (00:45)
[2017-05-05] MEDS ORDERED: ONDANSETRON HCL 4 MG/2 ML VIAL IVP PRN (00:45)
--- NOTE | 2017-05-05 00:53 | RADRPT ---
EXAM DATE/TIME: 05/05/2017 00:37 [place] COMPARISON: No previous studies available for comparison. INDICATIONS : Post procedure, NG tube. MEDICAL HISTORY : Gastroparesis. SURGICAL HISTORY : Cholecystectomy. ENCOUNTER: Initial ACUITY: 1 day PAIN SCORE: Non-responsive. LOCATION: Bilateral chest FINDINGS: A single view of the chest demonstrates the lungs to be symmetrically aerated without evidence of mas s, infiltrate or effusion. The cardiomediastinal contours are unremarkable. Osseous structures are intact. CONCLUSION: 1. No active disease. NG tip in stomach. Zak Singh MD on May 05, 2017 at 0:47 Board Certified Radiologist. This report was verified electronically.
[2017-05-05] MEDS: SODIUM CHLOR 0.9% 1000 ML INJ 1,000 ML IV SCH ×3 (01:01→20:31)
[2017-05-05] MEDS ORDERED: PRIL10PO (01:23)
[2017-05-05] MEDS: MORPHINE SULFATE 4 MG/ML INJ IV PRN ×3 (02:52→13:51)
--- NOTE | 2017-05-05 03:27 | HHI.HP ---
[facility] Service [facility] Hospitalists Primary Care Physician No Primary Care Physician Admission Diagnosis intractable vomiting, gastroparesis Diagnoses: (1) Intractable nausea and vomiting Diagnosis: Principal (2) Gastroparesis Diagnosis: Principal (3) Hypokalemia Diagnosis: Principal (4) Dehydration Diagnosis: Principal (5) Leukocytosis Diagnosis: Principal (6) Tobacco abuse Diagnosis: Principal Travel History International Travel<30 Days: No Contact w/Intl Traveler <30 Da: No Traveled to Known Affected Are: No History of Present Illness This is a 31-year-old male with a PMH of Gastroparesis and Tobacco Abuse as into the ER with complaints of epigastric pain in addition to nausea and vomiting. States symptoms have been ongoing for approx 2wks after running out of medications. Denies fever, chills or diarrhea. On arrival, BP 137/91, HR 86 , O2 sat 98% on RA, Afebrile. WBC 27.5, previously 28.4 on 04/07/17, 38.6 on . Chemistry unremarkable except for K+ 3.2, GFR 81, BUN 21. S/p multiple doses of antiemetics in ER w/ minimal relief, ultimately s/p NGT placement. CXR w/ no acute findings, NG tip in stomach. Review of Systems Except as stated in HPI: all other systems reviewed are Neg ROS: 14 point review of systems otherwise negative. Past Family Social History Past Medical History PMH: Gastroparesis and Tobacco Abuse Past Surgical History PAST SURGICAL HISTORY: Cholecystectomy Allergies: Coded Allergies: No Known Allergies (Unverified , 05/04/17) Family History PAST FAMILY HISTORY: Reviewed. No h/o DM or CAD Social History PAST SOCIAL HISTORY: Occasional alcohol. Smokes 1ppd. +Marijuana. Physical Exam Vital Signs Vital Signs Date Time Temp Pulse Resp B/P Pulse Ox O2 Delivery O2 Flow Rate FiO2 05/05/17 01:45 96.7 52 16 114/64 95 05/05/17 01:05 55 16 139/79 97 Room Air 05/04/17 23:46 61 18 135/68 100 Room Air 05/04/17 21:43 73 18 152/94 96 Room Air 05/04/17 19:54 98.0 86 20 137/91 98 Physical Exam PE: GENERAL: Young male in mild distress secondary to nausea/vomiting. HEENT: PERRLA, EOMI. No scleral icterus or conjunctival pallor. No lid lag or facial droop. CARDIOVASCULAR: Regular rate and rhythm. No obvious murmurs to auscultation. No chest tenderness to palpation. RESPIRATORY: No obvious rhonchi or wheezing. Clear to auscultation. Breath sounds equal bilaterally. GASTROINTESTINAL: Abdomen soft, epigastric tenderness to palpation, nondistended. BS normal. MUSCULOSKELETAL: Extremities without clubbing, cyanosis, or edema. No obvious deformities. NEUROLOGICAL: Awake, alert and oriented x4. No focal neurologic deficits. Moving both upper and lower extremities spontaneously. Laboratory Laboratory Tests Test 05/04/17 20:21 White Blood Count 27.5 Red Blood Count 5.66 Hemoglobin 17.6 Hematocrit 50.6 Mean Corpuscular Volume 89.4 Mean Corpuscular Hemoglobin 31.1 Mean Corpuscular Hemoglobin 34.8 Concent Red Cell Distribution Width 13.0 Platelet Count 316 Mean Platelet Volume 8.9 Neutrophils (%) (Auto) 76.5 Lymphocytes (%) (Auto) 17.0 Monocytes (%) (Auto) 4.9 Eosinophils (%) (Auto) 0.7 Basophils (%) (Auto) 0.9 Neutrophils # (Auto) 21.0 Lymphocytes # (Auto) 4.7 Monocytes # (Auto) 1.3 Eosinophils # (Auto) 0.2 Basophils # (Auto) 0.3 CBC Comment DIFF FINAL Differential Comment Sodium Level 133 Potassium Level 3.2 Chloride Level 100 Carbon Dioxide Level 23.2 Anion Gap 10 Blood Urea Nitrogen 21 Creatinine 1.27 Estimat Glomerular Filtration 81 Rate Random Glucose 125 Calcium Level 9.3 Total Bilirubin 0.9 Aspartate Amino Transf 20 (AST/SGOT) Alanine Aminotransferase 21 (ALT/SGPT) Alkaline Phosphatase 103 Total Protein 8.5 Albumin 4.7 Lipase 109 Result Diagram: 05/04/17202005/04/172020 Assessment and Plan Problem List: (1) Intractable nausea and vomiting ICD Code: R11.2 Status: Acute (2) Gastroparesis ICD Code: K31.84 Status: Acute (3) Hypokalemia ICD Code: E87.6 Status: Acute (4) Dehydration ICD Code: E86.0 Status: Acute (5) Leukocytosis ICD Code: D72.829 Status: Acute (6) Tobacco abuse ICD Code: Z72.0 Status: Acute Assessment and Plan A/P: 1. Intractable N/V: s/p multiple doses of antiemetics in ER, NGT placed, CXR w / NG tip in stomach, images reviewed by me, symptoms improved. IVF, NPO, continue w/ analgesics/antiemetics. 2. Gastroparesis: Acute on Chronic. Does not follow w/ GI. Reglan 10mg IV q8h, Zofran/Compazine, NGT, NPO, IVF. 3. Hypokalemia: K+ 3.2, s/p replacement, will recheck and replace as needed. 4. Dehydration: BUN 21, GFR 81. IVF for hydration, repeat labs in am. 5. Leukocytosis: Chronic. WBC 27.5, previously 28.4 on 04/07/17, 38.6 on . No signs of infection, will monitor. 6. Tobacco Abuse: Pt counselled. NicoDerm prn if needed. 7. DVT Prophylaxis: SCD/Teds. 8. Social work for d/c planning as needed. 9. Case discussed w/ ER physician at length. Jewell Mack MD May 05, 2017 03:27
[2017-05-05] MEDS: METOCLOPRAMIDE HCL 10 MG/2 ML VIAL IV PUSH SCH ×3 (05:52→22:00)
[2017-05-05] MEDS: DOCUSATE SODIUM 50 MG/SENNA 8.6 MG TAB PO SCH ×2 (09:00→21:00)
[2017-05-05] MEDS: PANTOPRAZOLE SODIUM 40 MG VIAL IV PUSH SCH ×2 (09:26→21:00)
[2017-05-05] MEDS: SODIUM CHLORIDE 0.9% FLUSH 10 ML FLUSH IV FLUSH SCH ×2 (09:26→21:00)
--- NOTE | 2017-05-05 09:43 | HHI.PR ---
Subjective Remarks Follow up for gastroparesis, intractable nausea/vomiting. The patient is very drowsy, continuously needs stimulation to stay awake and answer questions. He complains of continued nausea. NG tube in place with brown emesis output. He reports diffuse abdominal pain, unable to localize, says "my whole stomach hurts ". Denies fevers/chills. It was documented that the patient's symptoms started after he ran out of medications, however patient unable to name which medication he ran out of. He complains of dry mouth and wants sips of water, but does not have an appetite at this time. Objective Vitals Vital Signs Date Time Temp Pulse Resp B/P Pulse Ox O2 Delivery O2 Flow Rate FiO2 05/05/17 08:34 81 05/05/17 07:51 97.4 54 18 143/75 98 05/05/17 03:52 96.8 52 17 128/63 94 05/05/17 01:45 96.7 52 16 114/64 95 05/05/17 01:05 55 16 139/79 97 Room Air 05/04/17 23:46 61 18 135/68 100 Room Air 05/04/17 21:43 73 18 152/94 96 Room Air 05/04/17 19:54 98.0 86 20 137/91 98 I/O 05/04/17 05/04/17 05/04/17 05/05/17 05/05/17 05/05/17 07:00 15:00 23:00 07:00 15:00 23:00 Intake Total 100 ml Output Total 400 ml Balance -400 ml 100 ml Intake IV Total 100 ml Output Gastric Drainage Total 400 ml Result Diagram: 05/04/17202005/04/172020 Imaging Last Impressions Chest X-Ray 05/05/17 0000 Signed Impressions: Service Date/Time: Friday, May 05, 2017 00:37 - CONCLUSION: 1. No active disease. NG tip in stomach. Zak Singh MD Objective Remarks GENERAL: Well-nourished, well-developed young male patient in [facility]. SKIN: Warm and dry. No rash. HEENT: Normocephalic. Atraumatic. Pupils equal and round. Mucous membranes pink and moist. CARDIOVASCULAR: Regular rate and rhythm. S1, S2 noted. No murmur appreciated. RESPIRATORY: No accessory muscle use. Clear to auscultation. Breath sounds equal bilaterally. GASTROINTESTINAL: Abdomen soft, nondistended, diffuse TTP, worse at epigastric region. Normoactive bowel sounds x4. NG tube in place with brown emesis output. MUSCULOSKELETAL: No obvious deformities. Extremities without clubbing, cyanosis , or edema. NEUROLOGICAL: Drowsy. No obvious cranial nerve deficits. Motor grossly within normal limits. Normal speech. PSYCHIATRIC: Appropriate mood and affect; insight and judgment normal. Medications and IVs Current Medications Medications (Trade) Dose Ordered Sig/Joanna Route Start Time Stop Time Status Last Admin (Compazine Inj) 10 mg Q6H PRN IV PUSH 05/05/17 00:45 05/05/17 01:24 Metoclopramide HCl 10 mg 10 mg Q8HR IV PUSH 05/05/17 06:00 05/05/17 05:52 (NS 1000 ml Inj) 1,000 ml @ 100 mls/hr Q10H IV 05/05/17 00:31 05/05/17 01:01 (NS Flush) 2 ml UNSCH PRN IV FLUSH 05/05/17 00:45 (NS Flush) 2 ml BID IV FLUSH 05/05/17 09:00 05/05/17 09:26 (Zofran Inj) 4 mg Q6H PRN IVP 05/05/17 00:45 (Tylenol) 650 mg Q6H PRN PO 05/05/17 00:45 (Morphine Inj) 1 mg Q3H PRN IV 05/05/17 00:45 (Morphine Inj) 2 mg Q3H PRN IV 05/05/17 00:45 05/05/17 09:25 (Tiffanie-Colace) 1 tab BID PO 05/05/17 09:00 (Milk Of Magnesia Liq) 30 ml Q12H PRN PO 05/05/17 00:45 (Senokot) 17.2 mg Q12H PRN PO 05/05/17 00:45 (Dulcolax Supp) 10 mg DAILY PRN RECTAL 05/05/17 00:45 (Lactulose Liq) 30 ml DAILY PRN PO 05/05/17 00:45 (Protonix Inj) 40 mg Q12H IV PUSH 05/05/17 09:00 05/05/17 09:26 A/P Problem List: (1) Intractable nausea and vomiting ICD Code: R11.2 Status: Acute (2) Gastroparesis ICD Code: K31.84 Status: Acute (3) Hypokalemia ICD Code: E87.6 Status: Acute (4) Dehydration ICD Code: E86.0 Status: Acute (5) Leukocytosis ICD Code: D72.829 Status: Acute (6) Tobacco abuse ICD Code: Z72.0 Status: Acute Assessment and Plan 31-year-old male with a PMH of Gastroparesis and Tobacco Abuse as into the ER with complaints of epigastric pain in addition to nausea and vomiting. Intractable N/V: s/p multiple doses of antiemetics in ER, NGT placed, CXR w/ NG tip in stomach, images reviewed by me. Symptoms slowly improving. Continue supportive treatment with IVF, analgesics/antiemetics as needed. Keep NPO for now. Acute Gastroparesis: Acute on Chronic. Does not follow w/ GI. Continue Reglan 10mg IV q8h, Zofran/Compazine, NGT, NPO, IVF. Hypokalemia: K+ 3.2, s/p replacement, will recheck and replace as needed. Dehydration: BUN 21, GFR 81. IVF for hydration, repeat labs. Leukocytosis: WBC 27.5, previously 28.4 on 04/07/17, 38.6 on 03/09/17. Unclear etiology. Possibly reactive. No signs of acute infection. Will order peripheral blood smear review, ESR, CRP. Repeat CBC. Tobacco Abuse: Pt counselled. NicoDerm prn if needed. DVT Prophylaxis: SCD/Teds. Discharge Planning Discharge pending further clinical improvement and tolerating oral intake. Not yet ready for discharge. Trini Sommers PA-C May 05, 2017 9:43 am
[2017-05-05 13:15] LABS: AUTOMATED NEUTROPHIL # 24.6 TH/MM3 (1.8-7.7); BASOPHIL % 0.1 % (0.0-2.0); HEMATOCRIT 46.7 % (39.0-51.0); HEMO FLAGS DIFF FINAL; LYMPH % 6.7 % (9.0-44.0); LYMPHOCYTE # 1.9 TH/MM3 (1.0-4.8); MEAN CELL VOLUME 90.3 FL (80.0-100.0); MEAN CORPUSCULAR HEMOGLOBIN 30.8 PG (27.0-34.0); MEAN CORPUSCULAR HGB CONC 34.1 % (32.0-36.0); NEUT % 86.2 % (16.0-70.0); PLATELET COUNT 284 TH/MM3 (150-450); RED BLOOD COUNT 5.17 MIL/MM3 (4.50-5.90); RED CELL DISTRIBUTION WIDTH 13.7 % (11.6-17.2); WHITE BLOOD COUNT 28.6 TH/MM3 (4.0-11.0)
[2017-05-05 13:32] LABS: BICARBONATE 24.5 MEQ/L (21.0-32.0); MAGNESIUM 2.3 MG/DL (1.5-2.5); POTASSIUM 3.9 MEQ/L (3.5-5.1)
--- NOTE | 2017-05-05 16:12 | EKG ---
Date Performed: 05/05/2017 Time Performed: 03:07:10 PTAGE: 31 years EKG: SINUS BRADYCARDIA WITH SINUS ARRHYTHMIA AND PROBABLE PAC INCOMPLETE RIGHT BUNDLE BRANCH BLO CK BORDERLINE ECG NO PREVIOUS TRACING DOCTOR: Petros Li Interpretating Date/Time 05/05/2017 16:12:16
[2017-05-06 00:25] VITALS: BP 126/71; PULSE 86; RESP 18; TEMP 98; O2SAT 96
[2017-05-06 04:13] LABS: AUTOMATED NEUTROPHIL # 13.8 TH/MM3 (1.8-7.7); BASOPHIL # 0.1 TH/MM3 (0-0.2); BASOPHIL % 0.2 % (0.0-2.0); EOSINOPHIL # 0.1 TH/MM3 (0-0.4); EOSINOPHIL % 0.4 % (0.0-4.0); HEMATOCRIT 45.9 % (39.0-51.0); LYMPH % 21.4 % (9.0-44.0); LYMPHOCYTE # 4.4 TH/MM3 (1.0-4.8); MEAN CELL VOLUME 90.1 FL (80.0-100.0); MEAN CORPUSCULAR HEMOGLOBIN 31.2 PG (27.0-34.0); MEAN CORPUSCULAR HGB CONC 34.7 % (32.0-36.0); MONO % 10.5 % (0.0-8.0); NEUT % 67.5 % (16.0-70.0); PLATELET COUNT 252 TH/MM3 (150-450); RED CELL DISTRIBUTION WIDTH 13.6 % (11.6-17.2); WHITE BLOOD COUNT 20.5 TH/MM3 (4.0-11.0)
[2017-05-06 04:14] VITALS: BP 133/76; PULSE 88; RESP 18; TEMP 97.4; O2SAT 98
[2017-05-06 04:29] LABS: HEMO FLAGS AUTO DIFF
[2017-05-06 04:36] LABS: ALKALINE PHOSPHATASE 78 U/L (45-117); ALT (GPT) 17 U/L (12-78); ANION GAP 9 MEQ/L (5-15); AST (GOT) 13 U/L (15-37); BICARBONATE 28.5 MEQ/L (21.0-32.0); BLOOD UREA NITROGEN 9 MG/DL (7-18); CHLORIDE 102 MEQ/L (98-107); GLOMERULAR FILTRATION RATE 123 ML/MIN (>89); POTASSIUM 3.4 MEQ/L (3.5-5.1); SODIUM (NA) 139 MEQ/L (136-145); TOTAL BILIRUBIN ADULT 0.8 MG/DL (0.2-1.0)
[2017-05-06 05:14] LABS: EOSINOPHILS 1 % (0-4); NEUTROPHIL # MANUAL DIFF 14.6 TH/MM3 (1.8-7.7); POLYS (SEG NEUTROPHILS) 71 % (16-70); WBC DIFF SAMPLE 100
[2017-05-06 05:15] LABS: PLATELET ESTIMATE SMEAR NORMAL (NORMAL); PLATELET MORPHOLOGY NORMAL (NORMAL); SCAN/DIFF FINAL DIFF MANUAL
[2017-05-06] MEDS: METOCLOPRAMIDE HCL 10 MG/2 ML VIAL IV PUSH SCH ×3 (06:00→14:45)
--- NOTE | 2017-05-06 06:29 | HHI.PR ---
Subjective Remarks Follow up for gastroparesis, intractable nausea/vomiting. Patient reports no further N/V. He is somewhat concern about advancing diet. No fever, chills. Objective Vitals Vital Signs Date Time Temp Pulse Resp B/P Pulse Ox O2 Delivery O2 Flow Rate FiO2 05/06/17 04:14 97.4 88 18 133/76 98 05/06/17 00:25 98.0 86 18 126/71 96 05/05/17 20:40 97.9 90 18 137/81 98 05/05/17 19:26 98.6 97 20 117/73 97 05/05/17 16:00 98.0 94 18 124/72 97 05/05/17 13:30 05/05/17 11:21 98.8 57 18 131/94 97 05/05/17 10:07 05/05/17 08:34 81 05/05/17 07:51 97.4 54 18 143/75 98 I/O 05/05/17 05/05/17 05/05/17 05/06/17 05/06/17 05/06/17 07:00 15:00 23:00 07:00 15:00 23:00 Intake Total 100 ml 360 ml Output Total 400 ml 450 ml Balance -400 ml -350 ml 360 ml Intake Oral 360 ml IV Total 100 ml Output Gastric Drainage Total 400 ml 450 ml # Voids 1 # Bowel Movements 0 Result Diagram: 05/06/17 0334 05/06/17 0334 A/P Problem List: (1) Intractable nausea and vomiting ICD Code: R11.2 - Nausea with vomiting, unspecified Status: Acute (2) Gastroparesis ICD Code: K31.84 - Gastroparesis Status: Acute (3) Hypokalemia ICD Code: E87.6 - Hypokalemia Status: Acute (4) Dehydration ICD Code: E86.0 - Dehydration Status: Acute (5) Leukocytosis ICD Code: D72.829 - Elevated white blood cell count, unspecified Status: Acute (6) Tobacco abuse ICD Code: Z72.0 - Tobacco use Status: Acute Kayode Vance DO May 06, 2017 06:29
[2017-05-06] MEDS: SODIUM CHLOR 0.9% 1000 ML INJ 1,000 ML IV SCH ×2 (06:31→16:31)
[2017-05-06 07:43] VITALS: BP 129/78; PULSE 81; RESP 16; TEMP 96.4; O2SAT 99
[2017-05-06] MEDS: DOCUSATE SODIUM 50 MG/SENNA 8.6 MG TAB PO SCH (08:06)
[2017-05-06] MEDS: SODIUM CHLORIDE 0.9% FLUSH 10 ML FLUSH IV FLUSH SCH (08:06)
[2017-05-06] MEDS: SODIUM CHLORIDE 0.9% FLUSH 10 ML FLUSH IV FLUSH PRN ×3 (11:30→14:44)
[2017-05-06 11:38] VITALS: BP 123/70; PULSE 68; RESP 16; TEMP 98.2; O2SAT 100
[2017-05-06] MEDS: PANTOPRAZOLE SODIUM 40 MG VIAL IV PUSH SCH (11:40)
[2017-05-06 15:55] VITALS: BP 118/72; PULSE 73; RESP 18; TEMP 98.1; O2SAT 100
[2017-05-06] MEDS ORDERED: REGL10TA5 PO (18:36)
--- NOTE | 2017-05-06 18:37 | HHI.DS ---
Discharge Summary Admission Date May 05, 2017 at 14:21 Discharge Date: May 06, 2017 Admitting Diagnosis intractable vomiting, gastroparesis (1) Intractable nausea and vomiting ICD Code: R11.2 - Nausea with vomiting, unspecified Status: Acute (2) Gastroparesis ICD Code: K31.84 - Gastroparesis Status: Acute (3) Hypokalemia ICD Code: E87.6 - Hypokalemia Status: Acute (4) Dehydration ICD Code: E86.0 - Dehydration Status: Acute (5) Leukocytosis ICD Code: D72.829 - Elevated white blood cell count, unspecified Status: Acute (6) Tobacco abuse ICD Code: Z72.0 - Tobacco use Status: Acute Procedures None. Brief History - From Admission This is a 31-year-old male with a PMH of Gastroparesis and Tobacco Abuse as into the ER with complaints of epigastric pain in addition to nausea and vomiting. States symptoms have been ongoing for approx 2wks after running out of medications. Denies fever, chills or diarrhea. On arrival, BP 137/91, HR 86 , O2 sat 98% on RA, Afebrile. WBC 27.5, previously 28.4 on 04/07/17, 38.6 on . Chemistry unremarkable except for K+ 3.2, GFR 81, BUN 21. S/p multiple doses of antiemetics in ER w/ minimal relief, ultimately s/p NGT placement. CXR w/ no acute findings, NG tip in stomach. CBC/BMP: 05/06/17 0334 05/06/17 0334 Significant Findings Laboratory Tests Test 05/04/17 20:21 05/05/17 12:35 05/06/17 03:34 White Blood Count 27.5 TH/MM3 (4.0-11.0) 28.6 TH/MM3 (4.0-11.0) 20.5 TH/MM3 (4.0-11.0) Hemoglobin 17.6 GM/DL (13.0-17.0) Neutrophils (%) (Auto) 76.5 % (16.0-70.0) 86.2 % (16.0-70.0) Neutrophils # (Auto) 21.0 TH/MM3 (1.8-7.7) 24.6 TH/MM3 (1.8-7.7) 13.8 TH/MM3 (1.8-7.7) Monocytes # (Auto) 1.3 TH/MM3 (0-0.9) 2.0 TH/MM3 (0-0.9) 2.2 TH/MM3 (0-0.9) Basophils # (Auto) 0.3 TH/MM3 (0-0.2) Blood Urea Nitrogen 21 MG/DL (7-18) Random Glucose 125 MG/DL (74-106) Total Protein 8.5 GM/DL (6.4-8.2) Sodium Level 133 MEQ/L (136-145) Potassium Level 3.2 MEQ/L (3.5-5.1) 3.4 MEQ/L (3.5-5.1) Estimat Glomerular Filtration Rate 81 ML/MIN (>89) Lymphocytes (%) (Auto) 6.7 % (9.0-44.0) C-Reactive Protein 0.43 MG/DL (0.00-0.30) Monocytes (%) (Auto) 10.5 % (0.0-8.0) Neutrophils % (Manual) 71 % (16-70) Neutrophils # (Manual) 14.6 TH/MM3 (1.8-7.7) Aspartate Amino Transf (AST/SGOT) 13 U/L (15-37) Imaging Last Impressions Chest X-Ray 05/05/17 0000 Signed Impressions: Service Date/Time: Friday, May 05, 2017 00:37 - CONCLUSION: 1. No active disease. NG tip in stomach. Zak Singh MD PE at Discharge GENERAL: Well-nourished, well-developed young male patient in [facility]. SKIN: Warm and dry. No rash. HEENT: Normocephalic. Atraumatic. Pupils equal and round. Mucous membranes pink and moist. CARDIOVASCULAR: Regular rate and rhythm. S1, S2 noted. No murmur appreciated. RESPIRATORY: No accessory muscle use. Clear to auscultation. Breath sounds equal bilaterally. GASTROINTESTINAL: Abdomen soft, nondistended, diffuse TTP, worse at epigastric region. Normoactive bowel sounds x4. NG tube in place with brown emesis output. MUSCULOSKELETAL: No obvious deformities. Extremities without clubbing, cyanosis , or edema. NEUROLOGICAL: Drowsy. No obvious cranial nerve deficits. Motor grossly within normal limits. Normal speech. PSYCHIATRIC: Appropriate mood and affect; insight and judgment normal. Pt update on day of discharge Follow up for gastroparesis, intractable nausea/vomiting. Patient reports no further N/V. No fever, chills. During the course of the day, we advanced his diet. For dinner, per RN, patient had subway sandwich and tolerated well. Wants to go home. Hospital Course 31-year-old male with a PMH of Gastroparesis and Tobacco Abuse as into the ER with complaints of epigastric pain in addition to nausea and vomiting. Intractable N/V: s/p multiple doses of antiemetics in ER, NGT placed, CXR w/ NG tip in stomach, images reviewed by me. Symptoms slowly improving. Continue supportive treatment with IVF, analgesics/antiemetics as needed. - N/V resolved. Patient tolerated diet well on the discharge. Acute Gastroparesis: Acute on Chronic. Does not follow w/ GI. Continue Reglan 10mg IV q8h, Zofran/Compazine, - Continue PO Reglan on discharge. Hypokalemia: K+ 3.2, s/p replacement, will recheck and replace as needed. Dehydration: BUN 21, GFR 81. IVF for hydration, repeat labs. Leukocytosis: WBC 27.5, previously 28.4 on 04/07/17, 38.6 on 03/09/17. Unclear etiology. Possibly reactive. No signs of acute infection. Patient is advised to follow up with PCP. Tobacco Abuse: Pt counselled. NicoDerm prn if needed. Pt Condition on Discharge: Good Discharge Disposition: Discharge Home Discharge Time: <= 30 minutes Discharge Instructions DIET: Follow Instructions for: As Tolerated, No Restrictions Activities you can perform: Regular-No Restrictions Follow up Referrals: PCP Follow-up - 1 Week New Medications: Metoclopramide (Reglan) 10 Mg Tab 10 MG PO TIDAC for Gastroparesis for 30 Days, TAB 0 Refills Continued Medications: Omeprazole Magnesium (Prilosec) 10 Mg Kayode Rodrigues DO May 06, 2017 18:37
== END 2017-05-07 00:14 | disposition home or self-care (01) | DRG 392 ==
LOC: NEPE 19:52 → NEDA 05-05 00:26 → NEPFCDU 05-05 01:31 → OBSVTOIN 05-05 14:21 → N06B 05-05 20:22
PROVIDERS: ADMIT Hospitalist; ATTEND Hospitalist
DX: K31.84 Gastroparesis (principal); E86.0 Dehydration; E87.6 Hypokalemia; D72.829 Elevated white blood cell count, unspecified; F17.210 Nicotine dependence, cigarettes, uncomplicated
CPT/HCPCS: 71010; 80048; 80053; 83690; 83735; 85007; 85025; 85027; 85060; 85652; 86140; 87040; 93005; 96361; 96374; 96375; C9113; J0780; J1200; J2270; J2405; J2765; J7030

== ENCOUNTER 2017-05-26 10:42 | Observation (INO) | payer MEDICAID ==
[~2017-05-26] VITALS: Ht 185.4 cm; Wt 85.0 kg
[~2017-05-26 10:42] MED LIST changes: -MAAL10003 CHEW; -OMEP20TA PO; -REGL5TAB PO; -ZOFR4TAB PO
[2017-05-26 10:46] VITALS: BP 158/94; PULSE 60; RESP 24; O2SAT 99
[2017-05-26] MEDS ORDERED: SODIUM CHLOR 0.9% 1000 ML INJ 1,000 ML IV SCH (10:59)
[2017-05-26] MEDS ORDERED: ONDANSETRON HCL 4 MG/2 ML VIAL IVP ONE (11:00)
[2017-05-26] MEDS ORDERED: SODIUM CHLORIDE 0.9% FLUSH 10 ML FLUSH IV FLUSH PRN ×2 (11:00→13:45)
[2017-05-26] MEDS ORDERED: diphenhydrAMINE HCL 50 MG/ML VIAL IM ONE (11:00)
[2017-05-26] MEDS ORDERED: METOCLOPRAMIDE HCL 10 MG/2 ML VIAL IV PUSH ONE (11:00)
[2017-05-26 11:09] VITALS: PULSE 79; RESP 22; TEMP 97.5; O2SAT 100
--- NOTE | 2017-05-26 11:10 | PD ---
HPI Chief Complaint: nausea vomiting and abdominal pain Time Seen by Provider: 10:52 Travel History International Travel<30 days: No Contact w/Intl Traveler<30days: No History of Present Illness HPI Patient is a 31-year-old male with a history of gastroparesis presents emergency department for evaluation of nausea vomiting and unable to keep anything down for the past 48 hours. Patient states he has not tried anything prior to arrival because he can't keep any of his by mouth pain medicines down. States she is also having some abdominal pain. On my initial evaluation the patient sleeping soundly and on arousal he states that he is having severe nausea and vomiting. Later he requested pain medicine from nursing. He retches and screams and then falls asleep and when he awakens he states he feels better when he is sleeping but is in his she wakes up the pain is worse. Denies any hematemesis denies any diarrhea denies any fevers. PFSH Past Medical History Blood Disorders: No Cancer: No Cardiovascular Problems: No Diminished Hearing: No Endocrine: No Gastrointestinal Disorders: Yes (GASTROPARESIS) Genitourinary: No Immune Disorder: No Musculoskeletal: No Neurologic: No Psychiatric: No Reproductive: No Respiratory: No Past Surgical History Cholecystectomy: Yes Social History Alcohol Use: Yes (RARE) Tobacco Use: Yes (1 PPD) Substance Use: Yes (marijuana) Allergies-Medications (Allergen,Severity, Reaction): Coded Allergies: No Known Allergies (Unverified , 05/26/17) Reported Meds & Prescriptions Reported Meds & Active Scripts Active Reglan (Metoclopramide HCl) 10 Mg Tab 10 Mg PO TIDAC 30 Days Reported Zofran (Ondansetron HCl) 4 Mg Tab 4 Mg PO Q12HR PRN Prilosec (Omeprazole Magnesium) 10 Mg Pow Review of Systems Except as stated in HPI: all other systems reviewed are Neg Physical Exam Narrative GENERAL: Well-developed well-nourished, sleeping soundly and then actively dry heaving. SKIN: Focused skin assessment warm/dry. HEAD: Atraumatic. Normocephalic. EYES: Pupils equal and round. No scleral icterus. No injection or drainage. ENT: No nasal bleeding or discharge. Mucous membranes pink and moist. NECK: Trachea midline. No JVD. CARDIOVASCULAR: Regular rate and rhythm. No murmur appreciated. RESPIRATORY: No accessory muscle use. Clear to auscultation. Breath sounds equal bilaterally. GASTROINTESTINAL: Abdomen soft, non-tender, nondistended. Hepatic and splenic margins not palpable. No rebound no percussive tenderness. Difficult auscultation bowel sounds secondary to patient cooperation. MUSCULOSKELETAL: No obvious deformities. No clubbing. No cyanosis. No edema. NEUROLOGICAL: Awake and alert. No obvious cranial nerve deficits. Motor grossly within normal limits. Normal speech. PSYCHIATRIC: Appropriate mood and affect; insight and judgment normal. Data Data Last Documented VS Vital Signs Date Time Temp Pulse Resp B/P (MAP) Pulse Ox O2 Delivery O2 Flow Rate FiO2 05/26/17 12:49 56 18 143/94 (110) 100 Room Air 05/26/17 11:09 97.5 Orders Orders Complete Blood Count With Diff (05/26/17 10:59) Comprehensive Metabolic Panel (05/26/17 10:59) Lipase (05/26/17 10:59) Iv Access Insert/Monitor (05/26/17 10:59) Ecg Monitoring (05/26/17 10:59) Oximetry (05/26/17 10:59) Ondansetron Inj (Zofran Inj) (05/26/17 11:00) Sodium Chlor 0.9% 1000 Ml Inj (Ns 1000 M (05/26/17 10:59) Sodium Chloride 0.9% Flush (Ns Flush) (05/26/17 11:00) Metoclopramide Inj (Reglan Inj) (05/26/17 11:00) Diphenhydramine Inj (Benadryl Inj) (05/26/17 11:00) Abdomen, Flat & Upright (05/26/17 ) Chest, Single Ap (05/26/17 ) Promethazine Inj (Phenergan Inj) (05/26/17 12:15) Ketorolac Inj (Toradol Inj) (05/26/17 12:15) Lorazepam Inj (Ativan Inj) (05/26/17 12:15) Admit Order (Ed Use Only) (05/26/17 ) Labs Laboratory Tests Test 05/26/17 11:15 White Blood Count 22.9 TH/MM3 Red Blood Count 5.24 MIL/MM3 Hemoglobin 16.1 GM/DL Hematocrit 47.7 % Mean Corpuscular Volume 91.0 FL Mean Corpuscular Hemoglobin 30.7 PG Mean Corpuscular Hemoglobin Concent 33.7 % Red Cell Distribution Width 14.4 % Platelet Count 288 TH/MM3 Mean Platelet Volume 8.7 FL Neutrophils (%) (Auto) 84.5 % Lymphocytes (%) (Auto) 12.1 % Monocytes (%) (Auto) 2.6 % Eosinophils (%) (Auto) 0.3 % Basophils (%) (Auto) 0.5 % Neutrophils # (Auto) 19.3 TH/MM3 Lymphocytes # (Auto) 2.8 TH/MM3 Monocytes # (Auto) 0.6 TH/MM3 Eosinophils # (Auto) 0.1 TH/MM3 Basophils # (Auto) 0.1 TH/MM3 CBC Comment DIFF FINAL Differential Comment Blood Urea Nitrogen 10 MG/DL Creatinine 1.12 MG/DL Random Glucose 160 MG/DL Total Protein 8.0 GM/DL Albumin 4.1 GM/DL Calcium Level 9.2 MG/DL Alkaline Phosphatase 82 U/L Aspartate Amino Transf (AST/SGOT) 14 U/L Alanine Aminotransferase (ALT/SGPT) 19 U/L Total Bilirubin 0.5 MG/DL Sodium Level 138 MEQ/L Potassium Level 4.1 MEQ/L Chloride Level 104 MEQ/L Carbon Dioxide Level 24.4 MEQ/L Anion Gap 10 MEQ/L Estimat Glomerular Filtration Rate 93 ML/MIN Lipase 165 U/L MDM Medical Decision Making Medical Screen Exam Complete: Yes Emergency Medical Condition: Yes Differential Diagnosis Gastroparesis flare, acute abdomen seems unlikely, chronic abdominal pain. Narrative Course Patient roomed emergency department, he requested Dilaudid from the nurses, I informed the patient that gastroparesis is a contraindication to IV narcotics. He was given Zofran, Phenergan, Ativan and Reglan, despite this he continues to have dry heaves. The patient states he does not think he can even try to take by mouth at this time. Patient does have an elevated white blood cell count but looking at his previous visits this seems to be status quo for him. At this time the patient cannot be safely discharged is unable tolerate by mouth, will admit for intractable nausea and vomiting. Diagnosis Primary Impression: Gastroparesis Additional Impression: Intractable vomiting Admitting Information Admitting Physician Requests: Observation Condition: Stable Skyler Morales MD May 26, 2017 11:10
[2017-05-26] MEDS ORDERED: ZOFR4TAB PO (11:20)
[2017-05-26 11:24] VITALS: RESP 22; O2SAT 99
[2017-05-26 11:31] LABS: AUTOMATED NEUTROPHIL # 19.3 TH/MM3 (1.8-7.7); BASOPHIL # 0.1 TH/MM3 (0-0.2); BASOPHIL % 0.5 % (0.0-2.0); EOSINOPHIL # 0.1 TH/MM3 (0-0.4); EOSINOPHIL % 0.3 % (0.0-4.0); HEMATOCRIT 47.7 % (39.0-51.0); HEMO FLAGS DIFF FINAL; LYMPH % 12.1 % (9.0-44.0); LYMPHOCYTE # 2.8 TH/MM3 (1.0-4.8); MEAN CORPUSCULAR HEMOGLOBIN 30.7 PG (27.0-34.0); MEAN CORPUSCULAR HGB CONC 33.7 % (32.0-36.0); MONO % 2.6 % (0.0-8.0); NEUT % 84.5 % (16.0-70.0); PLATELET COUNT 288 TH/MM3 (150-450); RED BLOOD COUNT 5.24 MIL/MM3 (4.50-5.90); RED CELL DISTRIBUTION WIDTH 14.4 % (11.6-17.2); WHITE BLOOD COUNT 22.9 TH/MM3 (4.0-11.0)
[2017-05-26 11:49] LABS: ANION GAP 10 MEQ/L (5-15); AST (GOT) 14 U/L (15-37); BICARBONATE 24.4 MEQ/L (21.0-32.0); BLOOD UREA NITROGEN 10 MG/DL (7-18); CHLORIDE 104 MEQ/L (98-107); GLOMERULAR FILTRATION RATE 93 ML/MIN (>89); POTASSIUM 4.1 MEQ/L (3.5-5.1); SODIUM (NA) 138 MEQ/L (136-145)
[2017-05-26 11:54] LABS: ALKALINE PHOSPHATASE 82 U/L (45-117); ALT (GPT) 19 U/L (12-78); TOTAL BILIRUBIN ADULT 0.5 MG/DL (0.2-1.0)
[2017-05-26] MEDS ORDERED: PROMETHAZINE INJ 25 MG/ML VIAL IM ONE (12:15)
[2017-05-26] MEDS ORDERED: KETOROLAC TROMETHAMINE 30 MG/ML (IVP) VIAL IV PUSH ONE (12:15)
[2017-05-26] MEDS ORDERED: LORazepam 2 MG/ML VIAL IV PUSH ONE (12:15)
--- NOTE | 2017-05-26 12:28 | RADRPT ---
EXAM DATE/TIME: 05/26/2017 12:06 [facility] COMPARISON: CHEST SINGLE AP, May 05, 2017, 0:37. INDICATIONS : Chest pain. MEDICAL HISTORY : None. SURGICAL HISTORY : None. ENCOUNTER: Initial ACUITY: 1 day PAIN SCORE: 0/10 LOCATION: Bilateral chest FINDINGS: Portable AP view of the chest demonstrates a normal-sized cardiac silhouette. No effusion, consolidat ion, or pneumothorax is visualized. The bones and soft tissues demonstrate no acute abnormality. CONCLUSION: No acute cardiopulmonary abnormality is identified. Ludwin Cosme MD on May 26, 2017 at 12:26 Board Certified Radiologist. This report was verified electronically.
--- NOTE | 2017-05-26 12:28 | RADRPT ---
EXAM DATE/TIME: 05/26/2017 12:08 [facility] COMPARISON: CT ABDOMEN & PELVIS W CONTRAST, March 10, 2017, 1:52. INDICATIONS : Abdominal pain. Vomiting. MEDICAL HISTORY : None. SURGICAL HISTORY : None. ENCOUNTER: Initial ACUITY: 1 day PAIN SCORE: 10/10 LOCATION: Bilateral Abdomen FINDINGS: Supine and upright views of the abdomen demonstrate air within small and large bowel in a nonobstruct princess pattern. No organomegaly or abnormal calcifications are identified. No abnormal mass effect is ap preciated. Upright image demonstrates no free intraperitoneal air or significant air-fluid level. Vis ualized bones demonstrate no acute finding and lower lung zones are clear. CONCLUSION: No acute abdominal abnormality is identified. Ludwin Cosme MD on May 26, 2017 at 12:26 Board Certified Radiologist. This report was verified electronically.
[2017-05-26 12:49] VITALS: BP 143/94; PULSE 56; RESP 18; O2SAT 100
[2017-05-26] MEDS ORDERED: METOCLOPRAMIDE HCL 10 MG/2 ML VIAL IV PUSH PRN (13:45)
[2017-05-26] MEDS ORDERED: ONDANSETRON HCL 4 MG/2 ML VIAL IVP PRN (13:45)
[2017-05-26] MEDS ORDERED: SENNOSIDES 8.6 MG TAB PO PRN (13:45)
[2017-05-26] MEDS ORDERED: ACETAMINOPHEN 325 MG TAB PO PRN (13:45)
[2017-05-26] MEDS ORDERED: LACTULOSE SYRUP 20 GM/30 ML CUP PO PRN (13:45)
[2017-05-26] MEDS ORDERED: PROCHLORPERAZINE 25 MG SUPP RECTAL PRN (13:45)
[2017-05-26] MEDS ORDERED: NALOXONE HCL 0.4 MG/ML AMP IV PRN (13:45)
[2017-05-26] MEDS ORDERED: BISACODYL 10 MG SUPP RECTAL PRN (13:45)
[2017-05-26] MEDS ORDERED: MAGNESIUM HYDROXIDE SUSP 30 ML CUP PO PRN (13:45)
[2017-05-26] MEDS: SODIUM CHLOR 0.9% 1000 ML INJ 1,000 ML IV SCH ×2 (14:59→23:47)
[2017-05-26 15:08] VITALS: BP 146/97; PULSE 60; RESP 18; O2SAT 99
--- NOTE | 2017-05-26 16:08 | HHI.HP ---
[facility] Primary Care Physician No Primary Care Physician Admission Diagnosis Gastroparesis, Intractible Nausea/Vomiting Diagnoses: Chief Complaint: Nausea, vomiting. Travel History International Travel<30 Days: No Contact w/Intl Traveler <30 Da: No Traveled to Known Affected Are: No History of Present Illness Mr. Nguyen is a 31 year old male with a history of gastroparesis who presents to the ED on 05/26/2017 due to intractable nausea, vomiting that started around 6AM today. At the beginning of this interview, patient was found sleeping. When I woke him up, he complains of abdominal pain, requests pain medications and start to have nausea, vomiting. He only brings up whitish mucus but not any vomiting. He immediately goes back to sleep and requests pain medication. He denies any fever, chills. Denies chest pain, shortness of breath, cough. No changes in bowel or bladder habits. He does not know the etiology of gastroparesis. He denies having diabetes. Review of Systems Except as stated in HPI: all other systems reviewed are Neg Past Family Social History Past Medical History Gastroparesis Past Surgical History Cholecystectomy Reported Medications Reglan (Metoclopramide HCl) 10 Mg Tab 10 Mg PO TIDAC 30 Days Prilosec (Omeprazole Magnesium) 10 Mg Pow Allergies: Coded Allergies: No Known Allergies (Unverified , 05/26/17) Family History No significant family history. Social History Smokes 1 pack a day. Uses marijuana. Drinks alcohol occasionally. Physical Exam Vital Signs Vital Signs Date Time Temp Pulse Resp B/P (MAP) Pulse Ox O2 Delivery O2 Flow Rate FiO2 05/26/17 15:08 60 18 146/97 (113) 99 Room Air 05/26/17 15:07 05/26/17 12:49 56 18 143/94 (110) 100 Room Air 05/26/17 11:24 22 99 Room Air 05/26/17 11:16 18 05/26/17 11:09 97.5 79 22 100 05/26/17 10:46 60 24 158/94 (115) 99 Room Air Physical Exam GENERAL: This is a well-nourished, well-developed patient, in no apparent distress. SKIN: No rashes, ecchymoses or lesions. Warm and dry. HEAD: Atraumatic. Normocephalic. No temporal or scalp tenderness. EYES: Pupils equal round and reactive. No injection or drainage. ENT: Nose without bleeding, purulent drainage or septal hematoma. Airway patent. NECK: Trachea midline. No lymphadenopathy. Supple, nontender, no meningeal signs. CARDIOVASCULAR: Regular rate and rhythm without murmurs, gallops, or rubs. No JVD. RESPIRATORY: Clear to auscultation. Breath sounds equal bilaterally. No wheezes , rales, or rhonchi. GASTROINTESTINAL: Abdomen soft, non-distended. Very tender to light palpation. MUSCULOSKELETAL: Extremities without clubbing, cyanosis, or edema. NEUROLOGICAL: Awake and alert. Cranial nerves II through XII intact. No focal neurological deficits. Normal speech. Laboratory Laboratory Tests Test 05/26/17 11:15 White Blood Count 22.9 Red Blood Count 5.24 Hemoglobin 16.1 Hematocrit 47.7 Mean Corpuscular Volume 91.0 Mean Corpuscular Hemoglobin 30.7 Mean Corpuscular Hemoglobin Concent 33.7 Red Cell Distribution Width 14.4 Platelet Count 288 Mean Platelet Volume 8.7 Neutrophils (%) (Auto) 84.5 Lymphocytes (%) (Auto) 12.1 Monocytes (%) (Auto) 2.6 Eosinophils (%) (Auto) 0.3 Basophils (%) (Auto) 0.5 Neutrophils # (Auto) 19.3 Lymphocytes # (Auto) 2.8 Monocytes # (Auto) 0.6 Eosinophils # (Auto) 0.1 Basophils # (Auto) 0.1 CBC Comment DIFF FINAL Differential Comment Blood Urea Nitrogen 10 Creatinine 1.12 Random Glucose 160 Total Protein 8.0 Albumin 4.1 Calcium Level 9.2 Alkaline Phosphatase 82 Aspartate Amino Transf (AST/SGOT) 14 Alanine Aminotransferase (ALT/SGPT) 19 Total Bilirubin 0.5 Sodium Level 138 Potassium Level 4.1 Chloride Level 104 Carbon Dioxide Level 24.4 Anion Gap 10 Estimat Glomerular Filtration Rate 93 Lipase 165 Result Diagram: 05/26/17 1115 05/26/17 1115 Imaging Last Impressions Chest X-Ray 05/26/17 0000 Signed Impressions: Service Date/Time: Friday, May 26, 2017 12:06 - CONCLUSION: No acute cardiopulmonary abnormality is identified. Ludwin Cosme MD Abdomen X-Ray 05/26/17 0000 Signed Impressions: Service Date/Time: Friday, May 26, 2017 12:08 - CONCLUSION: No acute abdominal abnormality is identified. MD Immanuel Reed VTE Risk Assessment Immanuel VTE Risk Assessment: No/Low Risk (score <= 1) Caprini Risk Assessment Model Point Value = 1 Point Value = 2 Point Value = 3 Point Value = 5 Age 41-60 Minor surgery BMI > 25 kg/m2 Swollen legs Varicose veins or History of unexplained or recurrent spontaneous Oral contraceptives or hormone replacement Sepsis (< 1 month) Serious lung disease, including pneumonia (< 1 month) Abnormal pulmonary function Acute myocardial infarction Congestive heart failure (< 1 month) History of inflammatory bowel disease Medical patient at bed rest Age 61-74 Arthroscopic surgery Major open surgery (> 45 min) Laparoscopic surgery (> 45 min) Malignancy Confined to bed (> 72 hours) Immobilizing plaster cast Central venous access Age >= 75 History of VTE Family history of VTE Factor V Leiden Prothrombin [id number] Lupus anticoagulant Anticardiolipin antibodies Elevated serum homocysteine Heparin-induced thrombocytopenia Other congenital or acquired thrombophilia Stroke (< 1 month) Elective arthroplasty Hip, pelvis, or leg fracture Acute spinal cord injury (< 1 month) Prophylaxis Regimen Total Risk Factor Score Risk Level Prophylaxis Regimen 0-1 Low Early ambulation 2 Moderate Order ONE of the following: *Sequential Compression Device (SCD) *Heparin 5000 units SQ BID 3-4 Higher Order ONE of the following medications: *Heparin 5000 units SQ TID *Enoxaparin/Lovenox 40 mg SQ daily (WT < 150 kg, CrCl > 30 mL/min) *Enoxaparin/Lovenox 30 mg SQ daily (WT < 150 kg, CrCl > 10-29 mL/min) *Enoxaparin/Lovenox 30 mg SQ BID (WT < 150 kg, CrCl > 30 mL/min) AND/OR *Sequential Compression Device (SCD) 5 or more Highest Order ONE of the following medications: *Heparin 5000 units SQ TID (Preferred with Epidurals) *Enoxaparin/Lovenox 40 mg SQ daily (WT < 150 kg, CrCl > 30 mL/min) *Enoxaparin/Lovenox 30 mg SQ daily (WT < 150 kg, CrCl > 10-29 mL/min) *Enoxaparin/Lovenox 30 mg SQ BID (WT < 150 kg, CrCl > 30 mL/min) AND *Sequential Compression Device (SCD) Assessment and Plan Problem List: (1) Gastroparesis ICD Code: K31.84 - Gastroparesis Status: Acute (2) Intractable nausea and vomiting ICD Code: R11.2 - Nausea with vomiting, unspecified Status: Acute Assessment and Plan Mr. Nguyen is a 31 year old male with a history of gastroparesis who presents to the ED due to intractable nausea, vomiting, abdominal pain that started around 6AM on 05/26/2017. - Gastritis - Clear liquid diet. - Morphine IV for abdominal pain - Zofran, Reglan PRN for nausea, vomiting. - Leukocytosis is likely due to gastritis. Will monitor. - Mild DEE - Creatinine 1.12. - Will repeat BMP, expect creatinine to improve with hydration - Hyperglycemia, possibly undiagnosed diabetes. - Random glucose in the ED was 160 (on BMP) - Will check HbA1C. - Gastroparesis - Etiology unknown. - Patient was on Reglan 10mg PO TID at home. - Will re-start Reglan PO once patient is able to tolerate oral medications. Full code. Ambulation, SCDs. Kayode Vance DO May 26, 2017 16:08
[2017-05-26] MEDS: MORPHINE SULFATE 4 MG/ML INJ IV PUSH PRN ×2 (19:27→23:40)
[2017-05-26 20:00] VITALS: BP 142/80; PULSE 68; RESP 20; TEMP 97.6; O2SAT 100
[2017-05-26] MEDS: SODIUM CHLORIDE 0.9% FLUSH 10 ML FLUSH IV FLUSH SCH (21:00)
[2017-05-26] MEDS: DOCUSATE SODIUM 50 MG/SENNA 8.6 MG TAB PO SCH (21:00)
[2017-05-27] VITALS: BP 136/89; PULSE 51; RESP 19; TEMP 98.6; O2SAT 96
[2017-05-27] MEDS: METOCLOPRAMIDE HCL SYRUP 10 MG/10 ML UDC PO SCH ×2 (06:11→11:11)
[2017-05-27] MEDS: MORPHINE SULFATE 4 MG/ML INJ IV PUSH PRN (06:11)
[2017-05-27 07:28] LABS: AUTOMATED NEUTROPHIL # 17.6 TH/MM3 (1.8-7.7); BASOPHIL # 0.1 TH/MM3 (0-0.2); BASOPHIL % 0.4 % (0.0-2.0); EOSINOPHIL # 0.1 TH/MM3 (0-0.4); EOSINOPHIL % 0.2 % (0.0-4.0); HEMATOCRIT 42.2 % (39.0-51.0); LYMPHOCYTE # 3.8 TH/MM3 (1.0-4.8); MEAN CELL VOLUME 91.6 FL (80.0-100.0); MEAN CORPUSCULAR HEMOGLOBIN 31.5 PG (27.0-34.0); MEAN CORPUSCULAR HGB CONC 34.4 % (32.0-36.0); MONO % 9.4 % (0.0-8.0); PLATELET COUNT 241 TH/MM3 (150-450); RED BLOOD COUNT 4.61 MIL/MM3 (4.50-5.90); RED CELL DISTRIBUTION WIDTH 14.3 % (11.6-17.2); WHITE BLOOD COUNT 23.8 TH/MM3 (4.0-11.0)
[2017-05-27 07:35] LABS: HEMO FLAGS AUTO DIFF
[2017-05-27 07:59] LABS: ANION GAP 8 MEQ/L (5-15); BICARBONATE 26.5 MEQ/L (21.0-32.0); BLOOD UREA NITROGEN 8 MG/DL (7-18); CHLORIDE 107 MEQ/L (98-107); GLOMERULAR FILTRATION RATE 117 ML/MIN (>89); POTASSIUM 3.4 MEQ/L (3.5-5.1); SODIUM (NA) 141 MEQ/L (136-145)
[2017-05-27 08:00] VITALS: BP 118/68; PULSE 88; RESP 17; TEMP 97.5; O2SAT 97
[2017-05-27] MEDS: DOCUSATE SODIUM 50 MG/SENNA 8.6 MG TAB PO SCH (08:01)
[2017-05-27] MEDS: SODIUM CHLORIDE 0.9% FLUSH 10 ML FLUSH IV FLUSH SCH (08:01)
--- NOTE | 2017-05-27 08:05 | HHI.PR ---
Subjective Remarks Follow-up for gastroparesis, nausea vomiting. Patient is currently doing well. He reports significant improvement of his abdominal pain. He is not having as much nausea vomiting. He would like to try Jell-O today. Objective Vitals Vital Signs Date Time Temp Pulse Resp B/P (MAP) Pulse Ox O2 Delivery O2 Flow Rate FiO2 05/27/17 00:00 98.6 51 19 136/89 (105) 96 05/26/17 20:00 97.6 68 20 142/80 (100) 100 05/26/17 15:08 60 18 146/97 (113) 99 Room Air 05/26/17 15:07 05/26/17 12:49 56 18 143/94 (110) 100 Room Air 05/26/17 11:24 22 99 Room Air 05/26/17 11:16 18 05/26/17 11:09 97.5 79 22 100 05/26/17 10:46 60 24 158/94 (115) 99 Room Air I/O 05/26/17 05/26/17 05/26/17 05/27/17 05/27/17 05/27/17 07:00 15:00 23:00 07:00 15:00 23:00 Intake Total 1000 ml 120 ml 1720 ml Output Total 400 ml Balance 1000 ml 120 ml 1320 ml Intake Oral 120 ml 120 ml IV Total 1000 ml 1600 ml Output Urine Total 400 ml # Voids 1 2 # Bowel Movements 0 0 Result Diagram: 05/27/17 0642 05/27/17 0642 Imaging Last Impressions Chest X-Ray 05/26/17 0000 Signed Impressions: Service Date/Time: Friday, May 26, 2017 12:06 - CONCLUSION: No acute cardiopulmonary abnormality is identified. Ludwin Cosme MD Abdomen X-Ray 05/26/17 0000 Signed Impressions: Service Date/Time: Friday, May 26, 2017 12:08 - CONCLUSION: No acute abdominal abnormality is identified. Ludwin Cosme MD Objective Remarks GENERAL: Alert, oriented 3, NAD. SKIN: Warm and dry. HEAD: Normocephalic. EYES: No scleral icterus. No injection or drainage. NECK: Supple, trachea midline. No JVD or lymphadenopathy. CARDIOVASCULAR: Regular rate and rhythm without murmurs, gallops, or rubs. RESPIRATORY: Breath sounds equal bilaterally. No accessory muscle use. GASTROINTESTINAL: Abdomen soft, non-tender, nondistended. MUSCULOSKELETAL: No cyanosis, or edema. BACK: Nontender without obvious deformity. No CVA tenderness. Procedures None A/P Problem List: (1) Gastroparesis ICD Code: K31.84 - Gastroparesis Status: Acute (2) Intractable nausea and vomiting ICD Code: R11.2 - Nausea with vomiting, unspecified Status: Acute Assessment and Plan Mr. Nguyen is a 31 year old male with a history of gastroparesis who presents to the ED due to intractable nausea, vomiting, abdominal pain that started around 6AM on 05/26/2017. - Gastritis - Clear liquid diet. He would like to try Jell-O this morning. If he tolerates okay then we'll advance his diet. - Morphine IV for abdominal pain - Zofran, Reglan PRN for nausea, vomiting. - Leukocytosis is likely due to gastritis. He has had persistent leukocytosis in the 20K range. - Mild DEE - Creatinine 1.12. - Resolved. Creatinine 0.92. - Hyperglycemia, possibly undiagnosed diabetes. - Random glucose in the ED was 160 (on BMP) -Blood glucose was 100 this morning. Doubt patient has diabetes. Hemoglobin A1c pending - Gastroparesis - Etiology unknown. - Patient was on Reglan 10mg PO TID at home. - Will re-start Reglan PO once patient is able to tolerate oral medications. Full code. Ambulation, SCDs. Probable discharge this afternoon if patient tolerates diet well. Kayode Vance DO May 27, 2017 08:05
[2017-05-27] MEDS: SODIUM CHLOR 0.9% 1000 ML INJ 1,000 ML IV SCH (11:09)
[2017-05-27 12:00] VITALS: BP 132/85; PULSE 73; RESP 18; TEMP 97.1; O2SAT 97
[2017-05-27 12:48] LABS: HEMOGLOBIN A1a 1.1 %; HEMOGLOBIN A1b 1.8 %; HEMOGLOBIN Ao 85.3 %; HEMOGLOBIN P3 3.7 %
[2017-05-27 13:42] LABS: SCAN/DIFF AUTO DIFF CONFIRMED
[2017-05-27] MEDS ORDERED: REGL10TA5 PO (14:13)
[2017-05-27] MEDS ORDERED: ZOFR4TAB3 SL (14:13)
== END 2017-05-27 15:10 | disposition home or self-care (01) ==
LOC: NEPE 10:42 → UNDOADMOB 13:41 → NEDA 13:41 → N07B 16:00 → UNDODISOB 05-27 15:10
PROVIDERS: ADMIT Hospitalist; ATTEND Hospitalist
DX: K31.84 Gastroparesis (principal); K29.70 Gastritis, unspecified, without bleeding; N17.9 Acute kidney failure, unspecified; R73.9 Hyperglycemia, unspecified
CPT/HCPCS: 71010; 74020; 80048; 80053; 83036; 83690; 85025; 96361; 96374; 96375; 99285; G0378; J1200; J1885; J2060; J2270; J2405; J2550; J2765; J7030

== ENCOUNTER 2017-06-29 03:13 | Emergency (ER) | payer MEDICAID ==
[~2017-06-29] VITALS: Ht 185.4 cm; Wt 85.0 kg
[~2017-06-29 03:13] MED LIST changes: +OMEP10SU; -PRIL10PO; +ZOFR4TAB3 SL
[2017-06-29 03:19] VITALS: BP 154/99; PULSE 58; RESP 18; TEMP 98.4; O2SAT 100
[2017-06-29] MEDS ORDERED: SODIUM CHLOR 0.9% 1000 ML INJ 1,000 ML IV SCH (03:37)
--- NOTE | 2017-06-29 03:40 | PD ---
HPI Chief Complaint: Abdominal Pain Time Seen by Provider: 03:29 Travel History International Travel<30 days: No Contact w/Intl Traveler<30days: No Traveled to known affect area: No History of Present Illness HPI 31-year-old male complains of abdominal pain with nausea vomiting. Patient states that the symptoms started yesterday and got worse tonight. Patient has history is gastroparesis with recurrent abdominal pain nausea vomiting. Patient states that he ran out of his Reglan. Patient denies any headache. Patient denies any chest pain or shortness of breath. Patient denies any dysuria or frequency. Patient denies any fever chills. PFSH Past Medical History Blood Disorders: No Cancer: No Cardiovascular Problems: No Diabetes: No Diminished Hearing: No Endocrine: No Gastrointestinal Disorders: Yes (GASTROPARESIS) GERD: Yes Genitourinary: No Immune Disorder: No Musculoskeletal: No Neurologic: No Psychiatric: No Reproductive: No Respiratory: No Influenza Vaccination: No Past Surgical History Abdominal Surgery: Yes (CHOLECYSTECTOMY) Cholecystectomy: Yes Other Surgery: Yes Social History Alcohol Use: Yes (RARE) Tobacco Use: Yes (1 PPD) Substance Use: Yes (marijuana) Allergies-Medications (Allergen,Severity, Reaction): Coded Allergies: No Known Allergies (Unverified , 06/29/17) Reported Meds & Prescriptions Reported Meds & Active Scripts Active Zofran Odt (Ondansetron Odt) 4 Mg Tab 4 Mg SL Q6HR PRN Reglan (Metoclopramide HCl) 10 Mg Tab 10 Mg PO TIDAC 30 Days Reported Prilosec (Omeprazole Magnesium) 10 Mg Pow Review of Systems General / Constitutional: No: Fever Eyes: No: Visual changes HENT: No: Headaches Cardiovascular: No: Chest Pain or Discomfort Respiratory: No: Shortness of Breath Gastrointestinal: Positive: Nausea, Vomiting, Abdominal Pain Genitourinary: No: Dysuria Musculoskeletal: No: Pain Skin: No Rash Neurologic: No: Weakness Psychiatric: No: Depression Endocrine: No: Polydipsia Hematologic/Lymphatic: No: Easy Bruising Physical Exam Narrative GENERAL: Well-nourished, well-developed patient. SKIN: Focused skin assessment warm/dry. HEAD: Normocephalic. EYES: No scleral icterus. No injection or drainage. NECK: Supple, trachea midline. No JVD or lymphadenopathy. CARDIOVASCULAR: Regular rate and rhythm without murmurs, gallops, or rubs. RESPIRATORY: Breath sounds equal bilaterally. No accessory muscle use. GASTROINTESTINAL: Abdomen soft, nondistended. Patient has moderate tenderness on palpation epigastric area. No rebound tenderness. No mass. MUSCULOSKELETAL: No cyanosis, or edema. BACK: Nontender without obvious deformity. No CVA tenderness. Neurologic exam normal. Data Data Last Documented VS Vital Signs Date Time Temp Pulse Resp B/P (MAP) Pulse Ox O2 Delivery O2 Flow Rate FiO2 06/29/17 03:19 98.4 58 18 154/99 (117) 100 Orders Orders Complete Blood Count With Diff (06/29/17 03:37) Comprehensive Metabolic Panel (06/29/17 03:37) Lipase (06/29/17 03:37) Iv Access Insert/Monitor (06/29/17 03:37) Ecg Monitoring (06/29/17 03:37) Oximetry (06/29/17 03:37) Ondansetron Inj (Zofran Inj) (06/29/17 03:45) Sodium Chlor 0.9% 1000 Ml Inj (Ns 1000 M (06/29/17 03:37) Sodium Chloride 0.9% Flush (Ns Flush) (06/29/17 03:45) Famotidine Inj (Pepcid Inj) (06/29/17 03:45) Ketorolac Inj (Toradol Inj) (06/29/17 03:45) Metoclopramide Inj (Reglan Inj) (06/29/17 03:45) Diphenhydramine Inj (Benadryl Inj) (06/29/17 03:45) Labs Laboratory Tests Test 06/29/17 03:40 White Blood Count 30.3 TH/MM3 Red Blood Count 5.69 MIL/MM3 Hemoglobin 17.9 GM/DL Hematocrit 51.5 % Mean Corpuscular Volume 90.5 FL Mean Corpuscular Hemoglobin 31.5 PG Mean Corpuscular Hemoglobin Concent 34.8 % Red Cell Distribution Width 13.4 % Platelet Count 266 TH/MM3 Mean Platelet Volume 9.6 FL Neutrophils (%) (Auto) 88.8 % Lymphocytes (%) (Auto) 6.6 % Monocytes (%) (Auto) 4.4 % Eosinophils (%) (Auto) 0.0 % Basophils (%) (Auto) 0.2 % Neutrophils # (Auto) 26.9 TH/MM3 Lymphocytes # (Auto) 2.0 TH/MM3 Monocytes # (Auto) 1.3 TH/MM3 Eosinophils # (Auto) 0.0 TH/MM3 Basophils # (Auto) 0.0 TH/MM3 CBC Comment AUTO DIFF Differential Comment AUTO DIFF CONFIRMED Platelet Estimate NORMAL Platelet Morphology Comment NORMAL Red Cell Morphology Comment NORMAL Blood Urea Nitrogen 19 MG/DL Creatinine 1.22 MG/DL Random Glucose 127 MG/DL Total Protein 8.3 GM/DL Albumin 4.4 GM/DL Calcium Level 9.5 MG/DL Alkaline Phosphatase 96 U/L Aspartate Amino Transf (AST/SGOT) 19 U/L Alanine Aminotransferase (ALT/SGPT) 27 U/L Total Bilirubin 0.5 MG/DL Sodium Level 135 MEQ/L Potassium Level 3.9 MEQ/L Chloride Level 99 MEQ/L Carbon Dioxide Level 24.7 MEQ/L Anion Gap 11 MEQ/L Estimat Glomerular Filtration Rate 85 ML/MIN Lipase 155 U/L MDM Medical Decision Making Medical Screen Exam Complete: Yes Emergency Medical Condition: Yes Interpretation(s) 5:42 AM. CBC WBC 30.3. Hemoglobin 17 point hematocrit 41.5. 88 neutrophil. Sodium 135. BUN 19. Creatinine 1.22. GFR 85. Differential Diagnosis Differential diagnosis including gastritis, PUD, pancreatitis, cholecystitis, colitis, UTI, pyelonephritis, nephrolithiasis, gastroparesis. Narrative Course 31-year-old male with abdominal pain and nausea vomiting. History of recurrent abdominal pain with nausea vomiting. Patient states that he has history of gastroparesis. Normal saline solution 1 L IV bolus. Toradol 30 mg IV. Reglan 10 mg IV. Zofran 4 mg IV. Benadryl 25 mg IV. Diagnosis Primary Impression: Cyclical vomiting syndrome Qualified Codes: G43.A0 - Cyclical vomiting, not intractable Additional Impression: Recurrent abdominal pain Patient Instructions: General Instructions Additional Instructions: Phenergan, Reglan as directed. Follow-up with GI specialist. Return if persistent problem or worse. Med/Other Pt SpecificInfo: Prescription(s) given Scripts Metoclopramide (Reglan) 10 Mg Tab 10 MG PO TIDAC for Nausea/Vomiting, #30 TAB 0 Refills Prov: Sohail Bravo MD 06/29/17 Promethazine (Phenergan) 25 Mg Tablet 25 MG PO Q6H Y for NAUSEA OR VOMITING, #20 TAB 0 Refills Prov: Sohail Bravo MD 06/29/17 Disposition: 01 DISCHARGE HOME Condition: Stable Sohail Bravo MD Jun 29, 2017 03:40
[2017-06-29] MEDS ORDERED: ONDANSETRON HCL 4 MG/2 ML VIAL IVP ONE (03:45)
[2017-06-29] MEDS ORDERED: KETOROLAC TROMETHAMINE 30 MG/ML (IVP) VIAL IVP ONE (03:45)
[2017-06-29] MEDS ORDERED: METOCLOPRAMIDE HCL 10 MG/2 ML VIAL IV PUSH ONE (03:45)
[2017-06-29] MEDS ORDERED: SODIUM CHLORIDE 0.9% FLUSH 10 ML FLUSH IV FLUSH PRN (03:45)
[2017-06-29] MEDS ORDERED: diphenhydrAMINE HCL 50 MG/ML VIAL IV PUSH ONE (03:45)
[2017-06-29] MEDS ORDERED: FAMOTIDINE 20 MG/2 ML VIAL IV PUSH ONE (03:45)
[2017-06-29 03:53] LABS: AUTOMATED NEUTROPHIL # 26.9 TH/MM3 (1.8-7.7); BASOPHIL % 0.2 % (0.0-2.0); HEMATOCRIT 51.5 % (39.0-51.0); LYMPH % 6.6 % (9.0-44.0); MEAN CELL VOLUME 90.5 FL (80.0-100.0); MEAN CORPUSCULAR HEMOGLOBIN 31.5 PG (27.0-34.0); MEAN CORPUSCULAR HGB CONC 34.8 % (32.0-36.0); MONO % 4.4 % (0.0-8.0); NEUT % 88.8 % (16.0-70.0); PLATELET COUNT 266 TH/MM3 (150-450); RED BLOOD COUNT 5.69 MIL/MM3 (4.50-5.90); RED CELL DISTRIBUTION WIDTH 13.4 % (11.6-17.2); WHITE BLOOD COUNT 30.3 TH/MM3 (4.0-11.0)
[2017-06-29 03:57] LABS: HEMO FLAGS AUTO DIFF
[2017-06-29 04:23] LABS: PLATELET ESTIMATE SMEAR NORMAL (NORMAL)
[2017-06-29 04:24] LABS: PLATELET MORPHOLOGY NORMAL (NORMAL); SCAN/DIFF AUTO DIFF CONFIRMED
[2017-06-29 05:17] LABS: BLOOD UREA NITROGEN 19 MG/DL (7-18)
[2017-06-29 05:18] LABS: ALKALINE PHOSPHATASE 96 U/L (45-117); ALT (GPT) 27 U/L (12-78); ANION GAP 11 MEQ/L (5-15); AST (GOT) 19 U/L (15-37); BICARBONATE 24.7 MEQ/L (21.0-32.0); CHLORIDE 99 MEQ/L (98-107); GLOMERULAR FILTRATION RATE 85 ML/MIN (>89); POTASSIUM 3.9 MEQ/L (3.5-5.1); SODIUM (NA) 135 MEQ/L (136-145); TOTAL BILIRUBIN ADULT 0.5 MG/DL (0.2-1.0)
[2017-06-29 05:30] VITALS: BP 155/85; PULSE 58; RESP 16; O2SAT 100
[2017-06-29] MEDS ORDERED: REGL10TA5 PO (05:46)
[2017-06-29] MEDS ORDERED: PROM25TA10 PO (05:46)
== END 2017-06-29 06:06 | disposition home or self-care (01) ==
LOC: NEPC 03:13
DX: G43.A0 Cyclical vomiting, in migraine, not intractable (principal); R10.9 Unspecified abdominal pain; K21.9 Gastro-esophageal reflux disease without esophagitis; F17.200 Nicotine dependence, unspecified, uncomplicated
CPT/HCPCS: 80053; 83690; 85025; 96361; 96374; 96375; 99284; J1200; J1885; J2405; J2765; J7030

== ENCOUNTER 2017-07-29 19:40 | Emergency (ER) | payer MEDICAID ==
[~2017-07-29] VITALS: Ht 185.4 cm; Wt 90.0 kg
[~2017-07-29 19:40] MED LIST changes: +IOHEXOL 350 MG/ML 10 ML VIAL (for RAD DIAG) IVCONTRAST ONE; +PROM25TA10 PO
[2017-07-29 19:50] VITALS: BP 154/80; PULSE 49; RESP 17; TEMP 97.8; O2SAT 100
--- NOTE | 2017-07-29 19:58 | PD ---
HPI Chief Complaint: Abdominal Pain Time Seen by Provider: 19:49 Travel History International Travel<30 days: No Contact w/Intl Traveler<30days: No Traveled to known affect area: No History of Present Illness HPI 32-year-old male presents to the emergency department from home by EMS transport for evaluation of nausea vomiting and abdominal pain. Reportedly symptoms began shortly after eating biscuits and gravy this morning for breakfast. Patient reports "I have gastritis". Patient has been seen for several visits since February for gastritis abdominal pain intractable vomiting possible cyclic vomiting syndrome and possible gastroparesis. Patient reports he takes no medications on a regular basis. Patient states yesterday he felt completely fine and when he went to bed last night he was normal and upon awakening felt well. Reportedly symptoms began after beginning breakfast. No report of peptic ulcer disease biliary colic cholelithiasis or pancreatitis. Patient does not report any hematemesis coffee-ground emesis or bilious emesis. Patient is not reporting any black or tarry stool or hematochezia. Patient reportedly had an episode of emesis en route with paramedics and then upon arriving to the emergency department. No report of dietary indiscretion, well water ingestion, or foreign travel. Patient request ice chips at this time. Patient rates his pain as severe. Patient is able able to identify exacerbating or alleviating factors. [facility] Past Medical History Narrative Medical gastritis, upper endoscopy, cholecystectomy; alcohol use tobacco use substance use; nursing notes reviewed Blood Disorders: No Cancer: No Cardiovascular Problems: No Diabetes: No Diminished Hearing: No Endocrine: No Gastrointestinal Disorders: Yes (GASTROPARESIS) GERD: Yes Genitourinary: No Immune Disorder: No Musculoskeletal: No Neurologic: No Psychiatric: No Reproductive: No Respiratory: No Past Surgical History Abdominal Surgery: Yes (CHOLECYSTECTOMY) Cholecystectomy: Yes Other Surgery: Yes Social History Alcohol Use: Yes (RARE) Tobacco Use: Yes (1 PPD) Substance Use: Yes (marijuana) Allergies-Medications (Allergen,Severity, Reaction): Coded Allergies: No Known Allergies (Unverified Adverse Reaction, Unknown, 07/29/17) Reported Meds & Prescriptions Reported Meds & Active Scripts Active No Active Prescriptions or Reported Medications Review of Systems Except as stated in HPI: all other systems reviewed are Neg General / Constitutional: No: Fever, Chills HENT: No: Congestion Cardiovascular: No: Chest Pain or Discomfort Respiratory: No: Shortness of Breath Gastrointestinal: Positive: Nausea, Vomiting, Diarrhea, Abdominal Pain Genitourinary: No: Flank Pain Musculoskeletal: No: Myalgias, Arthralgias Skin: No Rash, No Itching Neurologic: No: Weakness Psychiatric: No: Anxiety Hematologic/Lymphatic: No: Lymph Node Enlargement Physical Exam Narrative GENERAL: Well-developed well-nourished male in no acute distress no respiratory distress although intermittently will rock back and forth in the bed sit up yell out complaining of pain and lay back down. SKIN: Warm and dry. HEAD: Normocephalic. EYES: No scleral icterus. No injection or drainage. NECK: Supple, trachea midline. No JVD or lymphadenopathy. CARDIOVASCULAR: Regular rate and rhythm without murmurs, gallops, or rubs. RESPIRATORY: Breath sounds equal bilaterally. No accessory muscle use. GASTROINTESTINAL: Abdomen soft, diffusely mildly tender to palpation, positive active bowel sounds in all quadrants, abdomen is soft nonrigid, no rebound, no guarding, no clinical Perez sign, nondistended. MUSCULOSKELETAL: No cyanosis, or edema. BACK: Nontender without obvious deformity. No CVA tenderness. Data Data Last Documented VS Vital Signs Date Time Temp Pulse Resp B/P (MAP) Pulse Ox O2 Delivery O2 Flow Rate FiO2 07/29/17 19:50 97.8 49 17 154/80 (104) 100 Orders Orders Complete Blood Count With Diff (07/29/17 19:49) Comprehensive Metabolic Panel (07/29/17 19:49) Lipase (07/29/17 19:49) Urinalysis - C+S If Indicated (07/29/17 19:49) Iv Access Insert/Monitor (07/29/17 19:49) Ecg Monitoring (07/29/17 19:49) Oximetry (07/29/17 19:49) Sodium Chloride 0.9% Flush (Ns Flush) (07/29/17 20:00) Chest, Single Ap (07/29/17 19:49) Sodium Chlor 0.9% 1000 Ml Inj (Ns 1000 M (07/29/17 20:00) Metoclopramide Inj (Reglan Inj) (07/29/17 20:00) Ketorolac Inj (Toradol Inj) (07/29/17 20:00) Diphenhydramine Inj (Benadryl Inj) (07/29/17 20:00) Alcohol (Ethanol) (07/29/17 19:58) Drug Screen, Random Urine (07/29/17 19:58) Ct Abd/Pel W Iv Contrast(Rout) (07/29/17 ) Ondansetron Inj (Zofran Inj) (07/29/17 22:30) Iohexol 350 Inj (Omnipaque 350 Inj) (07/29/17 00:27) Labs Laboratory Tests Test 07/29/17 20:00 White Blood Count 27.8 TH/MM3 Red Blood Count 5.27 MIL/MM3 Hemoglobin 16.6 GM/DL Hematocrit 47.9 % Mean Corpuscular Volume 90.8 FL Mean Corpuscular Hemoglobin 31.5 PG Mean Corpuscular Hemoglobin Concent 34.7 % Red Cell Distribution Width 13.5 % Platelet Count 253 TH/MM3 Mean Platelet Volume 9.9 FL Neutrophils (%) (Auto) 89.9 % Lymphocytes (%) (Auto) 5.3 % Monocytes (%) (Auto) 4.3 % Eosinophils (%) (Auto) 0.0 % Basophils (%) (Auto) 0.5 % Neutrophils # (Auto) 24.9 TH/MM3 Lymphocytes # (Auto) 1.5 TH/MM3 Monocytes # (Auto) 1.2 TH/MM3 Eosinophils # (Auto) 0.0 TH/MM3 Basophils # (Auto) 0.2 TH/MM3 CBC Comment DIFF FINAL Differential Comment Blood Urea Nitrogen 11 MG/DL Creatinine 1.23 MG/DL Random Glucose 177 MG/DL Total Protein 8.0 GM/DL Albumin 4.4 GM/DL Calcium Level 9.3 MG/DL Alkaline Phosphatase 87 U/L Aspartate Amino Transf (AST/SGOT) 18 U/L Alanine Aminotransferase (ALT/SGPT) 22 U/L Total Bilirubin 0.5 MG/DL Sodium Level 139 MEQ/L Potassium Level 3.7 MEQ/L Chloride Level 102 MEQ/L Carbon Dioxide Level 25.9 MEQ/L Anion Gap 11 MEQ/L Estimat Glomerular Filtration Rate 83 ML/MIN Lipase 79 U/L Ethyl Alcohol Level LESS THAN 3 MG/DL MDM Medical Decision Making Medical Screen Exam Complete: Yes Emergency Medical Condition: Yes Medical Record Reviewed: Yes Interpretation(s) Last Impressions Chest X-Ray 07/29/171948 Signed Impressions: Service Date/Time: Saturday, July 29, 2017 20:04 - CONCLUSION: Examination quality degraded by motion artifact. Given the appearance, no acute finding is identified. Ludwin Cosme MD Abdomen/Pelvis CT 07/29/17 0000 Signed Impressions: Service Date/Time: Sunday, July 30, 2017 00:24 - CONCLUSION: Stable unremarkable CT scan of the abdomen and pelvis. There again is some low- density within the left half of the prostate correlate clinically. Cholecystectomy clips. Solid organs are unremarkable. No evidence of bowel obstruction. Rvai Green MD CBC & BMP Diagram 07/29/17 20:00 Total Protein 8.0, Albumin 4.4, Calcium Level 9.3, Alkaline Phosphatase 87, Aspartate Amino Transf (AST/SGOT) 18, Alanine Aminotransferase (ALT/SGPT) 22, Total Bilirubin 0.5 Vital Signs Date Time Temp Pulse Resp B/P (MAP) Pulse Ox O2 Delivery O2 Flow Rate FiO2 07/29/17 19:50 97.8 49 17 154/80 (104) 100 Differential Diagnosis Gastritis, gastroenteritis, viral syndrome, choledocholithiasis, pancreatitis, peptic ulcer disease, dehydration, electrolyte disturbance, alcohol gastritis, also to consider perforated viscus, Boerhaave's, Delmy-Urban tear, malingering Narrative Course IV access obtained specimens collected and sent for resulting patient given 1 L normal saline along with Reglan 10 mg IV, Benadryl 25 mg IV and Toradol 30 mg IV At 8:48 PM informed by patient's nurse he was witnessed gagging himself inducing vomiting. Patient again identified to have marked leukocytosis consistent with repetitive vomiting, stress demargination and dehydration. Review of medical records indicates each visit his white cell count is elevated in the 20-30,000 range after multiple episodes of vomiting prior to coming to the emergency department but responds well to IV fluid hydration and antibiotic therapy. Review of medical records also indicates patient is undergone upper endoscopy in the past and cholecystectomy without resolution of episodes of hyperemesis versus gastroparesis versus cyclic vomiting syndrome. Patient does use cannabis but has not been noted to have cannabis induced hyperemesis/hyperemesis cannabis syndrome. Patient remains afebrile in the emergency department. Patient did undergo CT imaging February 2017 without acute abnormality identified. We'll reassess after additional IV fluid bolus. It is now 1:30 AM patient has had no further nausea or vomiting or complaining of abdominal pain CT abdomen and pelvis reveals no acute process patient presents with leukocytosis most likely reflects hydration status. Patient's had 2 L of fluid and is comfortable with this time in stable for outpatient management Diagnosis Primary Impression: Gastritis Additional Impression: Gastroparesis Referrals: Primary Care Physician call for appointment Patient Instructions: General Instructions Med/Other Pt SpecificInfo: Prescription(s) given Scripts Metoclopramide (Reglan) 10 Mg Tab 10 MG PO QID for Nausea/Vomiting, #12 TAB 0 Refills Prov: Rehana Blanco MD 07/30/17 Rehana Blanco MD Jul 29, 2017 19:58
[2017-07-29] MEDS ORDERED: SODIUM CHLOR 0.9% 1000 ML INJ 1,000 ML IV ONE (20:00)
[2017-07-29] MEDS ORDERED: METOCLOPRAMIDE HCL 10 MG/2 ML VIAL IV PUSH ONE (20:00)
[2017-07-29] MEDS ORDERED: diphenhydrAMINE HCL 50 MG/ML VIAL IV PUSH ONE (20:00)
[2017-07-29] MEDS ORDERED: KETOROLAC TROMETHAMINE 30 MG/ML (IVP) VIAL IV PUSH ONE (20:00)
[2017-07-29] MEDS ORDERED: SODIUM CHLORIDE 0.9% FLUSH 10 ML FLUSH IV FLUSH PRN (20:00)
[2017-07-29 20:20] LABS: AUTOMATED NEUTROPHIL # 24.9 TH/MM3 (1.8-7.7); BASOPHIL # 0.2 TH/MM3 (0-0.2); BASOPHIL % 0.5 % (0.0-2.0); HEMATOCRIT 47.9 % (39.0-51.0); HEMO FLAGS DIFF FINAL; LYMPH % 5.3 % (9.0-44.0); LYMPHOCYTE # 1.5 TH/MM3 (1.0-4.8); MEAN CELL VOLUME 90.8 FL (80.0-100.0); MEAN CORPUSCULAR HEMOGLOBIN 31.5 PG (27.0-34.0); MEAN CORPUSCULAR HGB CONC 34.7 % (32.0-36.0); MONO % 4.3 % (0.0-8.0); NEUT % 89.9 % (16.0-70.0); PLATELET COUNT 253 TH/MM3 (150-450); RED BLOOD COUNT 5.27 MIL/MM3 (4.50-5.90); RED CELL DISTRIBUTION WIDTH 13.5 % (11.6-17.2); WHITE BLOOD COUNT 27.8 TH/MM3 (4.0-11.0)
--- NOTE | 2017-07-29 20:20 | RADRPT ---
EXAM DATE/TIME: 07/29/2017 20:04 [facility] COMPARISON: CHEST SINGLE AP, May 26, 2017, 12:06. INDICATIONS : Vomiting, chest pain. MEDICAL HISTORY : None. SURGICAL HISTORY : None. ENCOUNTER: Initial ACUITY: 1 day PAIN SCORE: 0/10 LOCATION: Bilateral chest FINDINGS: Portable AP view of the chest demonstrates a normal-sized cardiac silhouette. No effusion, consolidat ion, or pneumothorax is visualized. The bones and soft tissues demonstrate no acute abnormality. Ther e is mild motion artifact. CONCLUSION: Examination quality degraded by motion artifact. Given the appearance, no acute finding is identified . Ludwin Cosme MD on July 29, 2017 at 20:17 Board Certified Radiologist. This report was verified electronically.
[2017-07-29 20:37] LABS: ALKALINE PHOSPHATASE 87 U/L (45-117); ALT (GPT) 22 U/L (12-78); TOTAL BILIRUBIN ADULT 0.5 MG/DL (0.2-1.0)
[2017-07-29 20:40] LABS: ANION GAP 11 MEQ/L (5-15); AST (GOT) 18 U/L (15-37); BICARBONATE 25.9 MEQ/L (21.0-32.0); BLOOD UREA NITROGEN 11 MG/DL (7-18); CHLORIDE 102 MEQ/L (98-107); GLOMERULAR FILTRATION RATE 83 ML/MIN (>89); POTASSIUM 3.7 MEQ/L (3.5-5.1); SODIUM (NA) 139 MEQ/L (136-145)
[2017-07-29] MEDS ORDERED: ONDANSETRON HCL 4 MG/2 ML VIAL IV PUSH ONE (22:30)
--- NOTE | 2017-07-30 00:49 | RADRPT ---
EXAM DATE/TIME: 07/30/2017 00:24 [facility] COMPARISON: CT ABDOMEN & PELVIS W CONTRAST, March 10, 2017, 1:52. INDICATIONS : Abdominal pain with vomiting. IV CONTRAST: 95 cc Omnipaque 350 (iohexol) IV ORAL CONTRAST: No oral contrast ingested. RADIATION DOSE: 7.40 CTDIvol (mGy) MEDICAL HISTORY : Gastroparesis. SURGICAL HISTORY : Cholecystectomy. ENCOUNTER: Initial ACUITY: 1 day PAIN SCALE: 7/10 LOCATION: Bilateral abdomen TECHNIQUE: Volumetric scanning of the abdomen and pelvis was performed. Using automated exposure control and ad justment of the mA and/or kV according to patient size, radiation dose was kept as low as reasonably achievable to obtain optimal diagnostic quality images. DICOM format image data is available electro nically for review and comparison. FINDINGS: LOWER LUNGS: The visualized lower lungs are clear. LIVER: Homogeneous density without lesion. There is no dilation of the biliary tree. Cholecystectomy clips. SPLEEN: Normal size without lesion. PANCREAS: Within normal limits. KIDNEYS: Normal in size and shape. There is no mass, stone or hydronephrosis other than small left renal cyst . ADRENAL GLANDS: Within normal limits. VASCULAR: There is no aortic aneurysm. BOWEL/MESENTERY: The stomach, small bowel, and colon demonstrate no acute abnormality. There is no free intraperitone al air or fluid. ABDOMINAL WALL: Within normal limits. RETROPERITONEUM: There is no lymphadenopathy. BLADDER: No wall thickening or mass. There is some fluid density within the left half of the prostate. INGUINAL: There is no lymphadenopathy or hernia. MUSCULOSKELETAL: Within normal limits for patient age. CONCLUSION: Stable unremarkable CT scan of the abdomen and pelvis. There again is some low-density within the lef t half of the prostate correlate clinically. Cholecystectomy clips. Solid organs are unremarkable. No evidence of bowel obstruction. Ravi Green MD on July 30, 2017 at 0:44 Board Certified Radiologist. This report was verified electronically.
[2017-07-30] MEDS ORDERED: REGL10TA5 PO (01:32)
== END 2017-07-30 03:07 | disposition home or self-care (01) ==
LOC: NEPC 19:40
DX: K29.70 Gastritis, unspecified, without bleeding (principal); K31.84 Gastroparesis; D72.829 Elevated white blood cell count, unspecified; F17.200 Nicotine dependence, unspecified, uncomplicated; Z87.19 Personal history of other diseases of the digestive system
CPT/HCPCS: 71010; 74177; 80053; 80307; 83690; 85025; 96374; 96375; 99285; J1200; J1885; J2405; J2765; J7030; Q9967